=== PATIENT | male | born 1960 | race Caucasian/White ===

== ENCOUNTER → 2017-04-16 | Outpatient (CLI) | payer BC ==
[2017-04-16 07:17] LABS: ALT 38 U/L (21-72); AST 26 U/L (17-59); Alkaline Phosphatase 104 U/L (38-126); Anion Gap 10 mmol/L; Blood Urea Nitrogen 17 mg/dL (9-20); Calcium 9.5 mg/dL (8.4-10.2); Carbon Dioxide 26 mmol/L (22-30); Chloride 100 mmol/L (98-107); Cholesterol 183 mg/dL (<200); Glucose 300 mg/dL (74-99); HDL Cholesterol 48 mg/dL (40-60); Non-African American GFR(MDRD) >60 (>60 ml/min/1.73 sqM); Potassium 4.2 mmol/L (3.5-5.1); Sodium 136 mmol/L (137-145); Total Bilirubin 0.5 mg/dL (0.2-1.3); Total Protein 7.1 g/dL (6.3-8.2)
[2017-04-16 08:29] LABS: CH 30.9; CHCM 35.1; HCT 46.2 % (39.0-53.0); HDW 2.54; HGB 15.7 gm/dL (13.0-17.5); MCV 88.4 fL (80.0-100.0); RBC 5.22 m/uL (4.30-5.90); RDW 14.5 % (11.5-15.5); WBC 10.8 k/uL (3.8-10.6)
== END | disposition home or self-care (01) ==
LOC: LABWHC1 06:34
PROVIDERS: ATTEND Psychiatry & Neurology Psychiatry
DX: J44.9 Chronic obstructive pulmonary disease, unspecified (principal); E03.9 Hypothyroidism, unspecified; E78.5 Hyperlipidemia, unspecified
CPT/HCPCS: 36415; 80053; 80061; 84439; 84443; 85027

== ENCOUNTER → 2017-04-25 | Outpatient (CLI) | payer BC ==
[2017-04-25 10:21] LABS: Appearance,Urine Clear (Clear); Bilirubin,Urine Negative (Negative); Glucose,Urine (UA) Trace (Negative); Ketones,Urine Negative (Negative); Leukocyte Esterase,Urine Negative (Negative); Nitrite,Urine Negative (Negative); Protein,Urine Trace (Negative); Specific Gravity,Urine 1.021 (1.001-1.035); UA Billing (MACRO vs. MICRO) CHEM
[2017-04-25 10:40] LABS: Potassium 4.6 mmol/L (3.5-5.1)
[2017-04-25 11:01] LABS: Hemoglobin A1C 8.7 % (4.2-6.1)
== END | disposition home or self-care (01) ==
LOC: LABWHC1 09:41
PROVIDERS: ATTEND Psychiatry & Neurology Psychiatry
DX: E11.9 Type 2 diabetes mellitus without complications (principal)
CPT/HCPCS: 36415; 80051; 81003; 83036

== ENCOUNTER → 2017-07-28 | Outpatient (CLI) | payer BC ==
[2017-07-28 09:09] LABS: Appearance,Urine Clear (Clear); Bilirubin,Urine Negative (Negative); Blood,Urine Negative (Negative); Color,Urine Yellow; Glucose,Urine (UA) Negative (Negative); Ketones,Urine Negative (Negative); Leukocyte Esterase,Urine Negative (Negative); Nitrite,Urine Negative (Negative); Protein,Urine Negative (Negative); Specific Gravity,Urine 1.009 (1.001-1.035)
[2017-07-28 09:45] LABS: T4, Free (Free Thyroxine) 1.1 ng/dL (0.78-2.19)
== END | disposition home or self-care (01) ==
LOC: LABWHC1 08:14
PROVIDERS: ATTEND Psychiatry & Neurology Psychiatry
DX: E11.9 Type 2 diabetes mellitus without complications (principal); E03.9 Hypothyroidism, unspecified
CPT/HCPCS: 36415; 80061; 81003; 83036; 84439; 84443

== ENCOUNTER → 2017-09-15 | Outpatient (CLI) | payer BC ==
[2017-09-15 07:48] LABS: Basophils % (A) 0 %; Eosinophils # (A) 0.3 k/uL (0-0.7); Eosinophils % (A) 3 %; HCT 48.6 % (39.0-53.0); HGB 16.3 gm/dL (13.0-17.5); Lymphocytes # (A) 1.9 k/uL (1.0-4.8); Lymphocytes % (A) 21 %; MCH 29.4 pg (25.0-35.0); MCHC 33.7 g/dL (31.0-37.0); MCV 87.4 fL (80.0-100.0); Mean Platelet Volume 6.3; Monocytes # (A) 0.6 k/uL (0-1.0); Monocytes % (A) 7 %; Neutrophils # (A) 6.4 k/uL (1.3-7.7); Neutrophils % (A) 68 %; Platelet Count 294 k/uL (150-450); RBC 5.55 m/uL (4.30-5.90); RDW 13.1 % (11.5-15.5); WBC 9.4 k/uL (3.8-10.6)
[2017-09-15 11:33] LABS: ALT 64 U/L (21-72); AST 38 U/L (17-59); Albumin 4.4 g/dL (3.5-5.0); Alkaline Phosphatase 67 U/L (38-126); Anion Gap 9 mmol/L; Blood Urea Nitrogen 23 mg/dL (9-20); Calcium 10.2 mg/dL (8.4-10.2); Carbon Dioxide 30 mmol/L (22-30); Chloride 101 mmol/L (98-107); Cholesterol 166 mg/dL (<200); Glucose 101 mg/dL (74-99); HDL Cholesterol 31 mg/dL (40-60); LDL Cholesterol,Calculated 81 mg/dL (0-99); Potassium 4.9 mmol/L (3.5-5.1); Sodium 140 mmol/L (137-145); Total Bilirubin 0.6 mg/dL (0.2-1.3); Total Protein 7.5 g/dL (6.3-8.2); Triglycerides 269 mg/dL (<150)
[2017-09-15 11:59] LABS: Prostate Specific Antigen 0.45 ng/mL (0.00-4.00)
== END | disposition home or self-care (01) ==
LOC: LABWHC1 06:44
PROVIDERS: ATTEND Family Medicine
DX: Z00.00 Encounter for general adult medical examination without abnormal findings (principal); N40.0 Benign prostatic hyperplasia without lower urinary tract symptoms; F32.9 Major depressive disorder, single episode, unspecified
CPT/HCPCS: 36415; 80053; 80061; 82306; 84153; 84443; 85025

== ENCOUNTER → 2018-04-22 | Outpatient (CLI) | payer BC ==
[2018-04-22 08:22] LABS: HCT 45.7 % (39.0-53.0); HGB 15.6 gm/dL (13.0-17.5); MCH 29.9 pg (25.0-35.0); MCHC 34.1 g/dL (31.0-37.0); MCV 87.8 fL (80.0-100.0); Mean Platelet Volume 6.3; Platelet Count 263 k/uL (150-450); RBC 5.21 m/uL (4.30-5.90); RDW 13.5 % (11.5-15.5); WBC 8.8 k/uL (3.8-10.6)
[2018-04-22 08:45] LABS: ALT 61 U/L (21-72); Cholesterol 175 mg/dL (<200); HDL Cholesterol 32 mg/dL (40-60); LDL Cholesterol,Calculated 101 mg/dL (0-99); Triglycerides 211 mg/dL (<150)
[2018-04-22 17:51] LABS: Hemoglobin A1C 5.8 % (4.0-6.0)
== END | disposition home or self-care (01) ==
LOC: LABWHC1 06:40
PROVIDERS: ATTEND Psychiatry & Neurology Psychiatry
DX: E11.9 Type 2 diabetes mellitus without complications (principal); E78.5 Hyperlipidemia, unspecified
CPT/HCPCS: 36415; 80061; 83036; 84460; 85027

== ENCOUNTER → 2018-09-01 | Outpatient (CLI) | payer OTHER, BC ==
[2018-09-01 13:35] LABS: HCT 48.1 % (39.0-53.0); HGB 16.8 gm/dL (13.0-17.5); MCH 31.3 pg (25.0-35.0); MCHC 34.8 g/dL (31.0-37.0); Mean Platelet Volume 5.7; Platelet Count 240 k/uL (150-450); RBC 5.35 m/uL (4.30-5.90); WBC 10.7 k/uL (3.8-10.6)
[2018-09-01 21:45] LABS: Hemoglobin A1C 6.3 % (4.0-6.0)
== END | disposition home or self-care (01) ==
LOC: LABWHC1 12:25
PROVIDERS: ATTEND Psychiatry & Neurology Psychiatry
DX: E11.9 Type 2 diabetes mellitus without complications (principal); E66.9 Obesity, unspecified; Z79.899 Other long term (current) drug therapy
CPT/HCPCS: 36415; 83036; 84443; 84460; 85027

== ENCOUNTER → 2018-09-04 | Outpatient (CLI) | payer OTHER, BC ==
[2018-09-04 17:40] LABS: LDL Cholesterol,Calculated 86.8 mg/dL (0.0-131.0); VLDL Calculation 56.2 mg/dL (5.00-40.00)
== END | disposition home or self-care (01) ==
LOC: LABWHC1 07:04
PROVIDERS: ATTEND Psychiatry & Neurology Psychiatry
DX: E78.5 Hyperlipidemia, unspecified (principal)
CPT/HCPCS: 36415; 80061

== ENCOUNTER → 2018-10-27 | Outpatient (CLI) | payer OTHER, BC ==
[2018-10-27 20:07] LABS: Hepatitis A Antibody IgM Non-Reactive (Non-Reactive); Hepatitis B Core IgM Non-Reactive (Non-Reactive)
== END | disposition home or self-care (01) ==
LOC: LABWHC1 12:56
PROVIDERS: ATTEND Psychiatry & Neurology Psychiatry
DX: R94.5 Abnormal results of liver function studies (principal)
CPT/HCPCS: 36415; 80074

== ENCOUNTER → 2019-02-23 | Outpatient (CLI) | payer OTHER, BC ==
[2019-02-23 07:33] LABS: Basophils # (A) 0.1 k/uL (0-0.2); Basophils % (A) 1 %; Eosinophils # (A) 0.2 k/uL (0-0.7); Eosinophils % (A) 3 %; HCT 48.6 % (39.0-53.0); HGB 16.5 gm/dL (13.0-17.5); Lymphocytes # (A) 2.1 k/uL (1.0-4.8); Lymphocytes % (A) 23 %; MCH 30.7 pg (25.0-35.0); MCV 90.5 fL (80.0-100.0); Mean Platelet Volume 6.1; Monocytes # (A) 0.6 k/uL (0-1.0); Monocytes % (A) 7 %; Neutrophils # (A) 6.1 k/uL (1.3-7.7); Neutrophils % (A) 65 %; Platelet Count 262 k/uL (150-450); RBC 5.37 m/uL (4.30-5.90); RDW 13.7 % (11.5-15.5); WBC 9.4 k/uL (3.8-10.6)
[2019-02-23 10:25] LABS: African American GFR (CKD) 95.1 (60.0-200.0); Albumin 4.6 g/dL (3.80-4.90); Albumin/Globulin Ratio 2.19 (1.60-3.17); Anion Gap 6.4 mmol/L (4.00-12.00); Calcium 9.8 mg/dL (8.7-10.3); Carbon Dioxide 29.6 mmol/L (21.6-31.8); Chol/HDL Ratio 4.33; Globulin 2.1 g/dL (1.6-3.3); LDL Cholesterol,Calculated 83.8 mg/dL (0.0-131.0); Potassium 4.9 mmol/L (3.5-5.5); Total Bilirubin 0.5 mg/dL (0.2-1.2); Total Protein 6.7 g/dL (6.2-8.2); VLDL Calculation 36.2 mg/dL (5.00-40.00)
== END | disposition home or self-care (01) ==
LOC: LABWHC1 06:53
PROVIDERS: ATTEND Family Medicine
DX: Z00.00 Encounter for general adult medical examination without abnormal findings (principal)
CPT/HCPCS: 36415; 80053; 80061; 84153; 84443; 85025

== ENCOUNTER → 2019-04-26 | Outpatient (CLI) | payer OTHER, BC | END | disposition home or self-care (01) | LOC: LABWHC1 08:39 | PROVIDERS: ATTEND Family Medicine | DX: Z00.00 Encounter for general adult medical examination without abnormal findings (principal) | CPT/HCPCS: 36415; 84153; 84443 ==

== ENCOUNTER 2019-05-12 15:44 | Emergency (ER) | payer OTHER, BC ==
[2019-05-12 15:52] VITALS: BP 131/91; PULSE 96; RESP 18; TEMP 98.2
--- NOTE | 2019-05-12 16:02 | ED ---
ENT HPI - General Chief complaint: ENT Stated complaint: foreign body lt ear Time Seen by Provider: 05/12/19 15:56 Source: patient Mode of arrival: wheelchair Limitations: no limitations - History of Present Illness Initial comments: 59-year-old male presenting for foreign body sensation in the left ear. Patient states that he attempted to clean his ears and felt he may have left a part of the ear cleaning His left ear. He states he hears something rattling in the ear. Patient states he was at his orthopedic surgeon's office today and had them look in his ear where he was told he had foreign body and presents emergency department for removal. Patient states he has ear discomfort. Patient denies any redness or swelling of the external ear. Denies fevers. Remaining review of system negative. Upon arrival patient appears well signs of acute distress. - Related Data Home Medications Medication Instructions Recorded Confirmed Aspirin EC [Ecotrin] 81 mg PO DAILY 12/22/15 07/01/16 Isosorbide Mononitrate [Isosorbide 30 mg PO DAILY 12/22/15 07/01/16 Mononitrate ER] Metoprolol Tartrate 12.5 mg PO BID 12/22/15 07/01/16 Omeprazole 20 mg PO DAILY 12/22/15 07/01/16 Albuterol Nebulized [Ventolin 2.5 mg INHALATION RT-Q4H PRN 07/01/16 07/01/16 Nebulized] Desvenlafaxine Succinate [Pristiq 25 mg PO DAILY 07/01/16 07/01/16 ER] Losartan Potassium 100 mg PO DAILY 07/01/16 07/01/16 Mometasone/Formoterol [Dulera 200 2 puff INHALATION RT-BID PRN 07/01/16 07/01/16 Mcg/5 Mcg Inhaler] Zolpidem [Ambien] 10 mg PO HS PRN 07/01/16 07/01/16 traMADol HCL [Ultram] 100 mg PO Q6H PRN 07/01/16 07/01/16 Previous Rx's Medication Instructions Recorded Ofloxacin 0.3% Otic Soln [Floxin 5 drops LEFT EAR BID 7 Days #1 05/12/19 0.3% Otic Soln] bottle Ofloxacin 0.3% Otic Soln [Floxin 5 drops LEFT EAR BID 7 Days #1 05/12/19 0.3% Otic Soln] bottle Allergies Allergy/AdvReac Type Severity Reaction Status Date / Time No Known Allergies Allergy Verified 07/01/16 09:05 Review of Systems ROS Statement: Those systems with pertinent positive or pertinent negative responses have been documented in the HPI. ROS Other: All systems not noted in ROS Statement are negative. Past Medical History Past Medical History: COPD, GERD/Reflux, Hypertension, Liver Disease, Osteoarthritis (OA), Sleep Apnea/CPAP/BIPAP Additional Past Medical History / Comment(s): SOB, Chest tightness, heart "flutter", hepatitis C- dx and tx 2013. no using CPAP History of Any Multi-Drug Resistant Organisms: None Reported Past Surgical History: Joint Replacement, Tonsillectomy Additional Past Surgical History / Comment(s): sue shoulder replacements, arthroscopy left knee, Past Anesthesia/Blood Transfusion Reactions: No Reported Reaction Past Psychological History: Anxiety, Depression, PTSD Smoking Status: Current every day smoker Past Alcohol Use History: None Reported Past Drug Use History: None Reported - Past Family History Father Family Medical History: Cancer Mother Family Medical History: Cancer General Exam - General Exam Comments Initial Comments: General: The patient is awake and alert, in no distress, and does not appear acutely ill. Eye: Pupils are equal, round and reactive to light, extra-ocular movements are intact. No nystagmus. There is normal conjunctiva bilaterally. No signs of icterus. Back foreign body visualized in the external auditory canal. Potential patient of the external ear. No tenderness with patient the mastoid. Once foreign body was removed there is redness and irritation of the external auditory canal. No tympanic membrane erythema. No bulging or effusion. Musculoskeletal: Normal ROM, no tenderness. Strength 5/5. Sensation intact. Pulses equal bilaterally 2+. Neurological: A&O x 3. CN II-XII intact grossly, There are no obvious motor or sensory deficits. Coordination appears grossly intact. Speech is normal. Skin: Skin is warm and dry and no rashes or lesions are noted. Psychiatric: Cooperative, appropriate mood & affect, normal judgment. Limitations: no limitations Course Vital Signs 05/12/19 15:49 Temperature 98.2 F Pulse Rate 96 Respiratory 18 Rate Blood Pressure 131/91 O2 Sat by Pulse 97 Oximetry Medical Decision Making - Medical Decision Making 59-year-old male presented ER for chief complaint of foreign body. Foreign body was removed using hemostats. Without complication easily. Irritation noted of the external auditory canal. Foreign body was a earbud cover from headphones. Patient be started on antibiotic drops as patient feels he lost this about 10 days ago and signs and irritation of extraocular canal. No known ALLERGIES patient is followed up with primary care provider tomorrow return parameters discussed case discussed with attending provider patient was discharged appearing well Disposition Clinical Impression: Foreign body in left ear Disposition: HOME SELF-CARE Condition: Good Instructions (If sedation given, give patient instructions): Ear Foreign Body (ED) Additional Instructions: Please use medication as discussed. Please follow-up with family doctor tomorrow as discussed. Please return to emergency room if the symptoms increase or worsen or for any other concerns. Prescriptions: Ofloxacin 0.3% Otic Soln [Floxin 0.3% Otic Soln] 5 drops LEFT EAR BID 7 Days #1 bottle Ofloxacin 0.3% Otic Soln [Floxin 0.3% Otic Soln] 5 drops LEFT EAR BID 7 Days #1 bottle Is patient prescribed a controlled substance at d/c from ED?: No Referrals: Dariel Bach MD [Primary Care Provider] - 1-2 days Time of Disposition: 16:02
== END 2019-05-12 16:11 | disposition home or self-care (01) ==
LOC: EC 15:44
DX: T16.2XXA Foreign body in left ear, initial encounter (principal); J44.9 Chronic obstructive pulmonary disease, unspecified; K21.9 Gastro-esophageal reflux disease without esophagitis; I10 Essential (primary) hypertension; M19.90 Unspecified osteoarthritis, unspecified site; F32.9 Major depressive disorder, single episode, unspecified; F41.9 Anxiety disorder, unspecified; F17.200 Nicotine dependence, unspecified, uncomplicated; Z79.51 Long term (current) use of inhaled steroids; Z79.82 Long term (current) use of aspirin; Z79.899 Other long term (current) drug therapy; Z96.611 Presence of right artificial shoulder joint; Z96.612 Presence of left artificial shoulder joint
CPT/HCPCS: 69200; 99282

== ENCOUNTER → 2019-05-17 | Outpatient (CLI) | payer OTHER, BC ==
[2019-05-17 10:07] LABS: Partial Thromboplastin Time 25.1 sec (22.0-30.0); Prothrombin Time 10.8 sec (9.0-12.0)
[2019-05-17 10:13] LABS: Appearance,Urine Clear (Clear); Bilirubin,Urine Negative (Negative); Blood,Urine Trace (Negative); Color,Urine Yellow; Glucose,Urine (UA) Negative (Negative); Ketones,Urine Negative (Negative); Leukocyte Esterase,Urine Negative (Negative); Mucus,Urine Rare /hpf; Nitrite,Urine Negative (Negative); PH, Urine 6.5 (5.0-8.0); Protein,Urine Negative (Negative); RBC,Urine 3 /hpf (0-5); Specific Gravity,Urine 1.012 (1.001-1.035)
[2019-05-17 10:16] LABS: HCT 47.2 % (39.0-53.0); HGB 16.3 gm/dL (13.0-17.5); MCHC 34.6 g/dL (31.0-37.0); MCV 89.6 fL (80.0-100.0); Mean Platelet Volume 5.5; Platelet Count 302 k/uL (150-450); RBC 5.27 m/uL (4.30-5.90); RDW 12.1 % (11.5-15.5); WBC 9.2 k/uL (3.8-10.6)
[2019-05-17 10:23] LABS: ALT 46 U/L (21-72); AST 35 U/L (17-59); African American GFR (CKD) >90 (>60 ml/min/1.73 sqM); Albumin 4.3 g/dL (3.5-5.0); Alkaline Phosphatase 72 U/L (38-126); Anion Gap 11 mmol/L; Blood Urea Nitrogen 20 mg/dL (9-20); Calcium 9.6 mg/dL (8.4-10.2); Carbon Dioxide 24 mmol/L (22-30); Chloride 101 mmol/L (98-107); Glucose 93 mg/dL (74-99); Potassium 4.5 mmol/L (3.5-5.1); Sodium 136 mmol/L (137-145); Total Bilirubin 0.6 mg/dL (0.2-1.3); Total Protein 7.6 g/dL (6.3-8.2)
== END | disposition home or self-care (01) ==
LOC: LABPAT 08:40
PROVIDERS: ATTEND Orthopaedic Surgery
DX: Z01.812 Encounter for preprocedural laboratory examination (principal)
CPT/HCPCS: 36415; 80053; 81001; 85027; 85610; 85730; 87070

== ENCOUNTER 2019-05-24 05:56 | Inpatient (IN) | payer MEDICARE, OTHER, BC ==
[~2019-05-24 05:56] MED LIST: ACETAMINOPHEN TAB 500 MG TAB PO ONE; MELOXICAM 7.5 MG TAB PO ONE; ONDANSETRON 4 MG/2 ML VIAL IVP ONE; TRANEXAMIC ACID 1,000 MG in SODIUM CHLORIDE 0.9% 100 ML IVPB ONE
[2019-05-24] MEDS ORDERED: ROPIVACAINE 246.25 MG, EPINEPHrine 0.5 MG, KETOROLAC 30 MG, cloNIDine HCL/PF 80 MCG, WA... MISCELLANE ONE ×5 (06:00)
[2019-05-24] MEDS ORDERED: METOCLOPRAMIDE 5 MG/ML 2 ML VIAL IVP PRN (06:08)
[2019-05-24] MEDS ORDERED: HYDROmorphone 0.5 MG/0.5 ML SYRINGE IVP PRN ×2 (06:08→09:53)
[2019-05-24] MEDS ORDERED: LIDOCAINE 1% 20 ML VIAL (10MG/ML) FOR IV START INTRADERMA PRN (06:08)
[2019-05-24] MEDS ORDERED: DEXAMETHASONE SOD PHOSPHATE 10 MG/ML 1 ML VIAL IV ONE (06:08)
[2019-05-24] MEDS: LACTATED RINGERS 1,000 ML IV SCH ×3 (06:44→19:43)
[2019-05-24 06:53] LABS: Glucose,Whole Blood 120 mg/dL (75-99)
[2019-05-24] MEDS ORDERED: TRANEXAMIC ACID 1,000 MG/10 ML VIAL ONE (07:35)
[2019-05-24] MEDS ORDERED: PHENYLEPHRINE-0.9% NACL SYG 1 MG/10 ML SYRINGE ONE (07:35)
[2019-05-24] MEDS ORDERED: KETAMINE 10 MG/ML 20 ML VIAL ONE (07:35)
[2019-05-24] MEDS ORDERED: PROPOFOL 10 MG/ML 20 ML VIAL IV ONE (07:35)
[2019-05-24] MEDS ORDERED: MIDAZOLAM 2 MG/2 ML VIAL ONE (07:35)
[2019-05-24] MEDS ORDERED: ePHEDrine SULFATE/0.9% NACL/PF 50 MG/5 ML SYRINGE IV ONE (07:35)
[2019-05-24] MEDS ORDERED: fentaNYL (PF) 50 MCG/ML 2 ML AMP ONE (07:35)
[2019-05-24] MEDS ORDERED: SODIUM CHLORIDE 0.9% 100 ML BAG ONE (07:35)
[2019-05-24] MEDS ORDERED: LIDOCAINE 1% INJ 10MG/ML (20 ML MDV) ONE (07:35)
[2019-05-24 08:12] LABS: Glucose,Whole Blood 103 mg/dL (75-99)
[2019-05-24] MEDS ORDERED: ceFAZolin 3,000 MG in SODIUM CHLORIDE 0.9% IRRIGATIO 3,000 ML IRRIGATION ONE (08:14)
[2019-05-24] MEDS ORDERED: LACTATED RINGERS 1,000 ML IV ONE (08:32)
[2019-05-24 09:10] LABS: Glucose,Whole Blood 101 mg/dL (75-99)
--- NOTE | 2019-05-24 09:19 | P.OP ---
Date of Procedure: 05/24/19 Procedure(s) Performed: PREOPERATIVE DIAGNOSIS: Right hip severe osteoarthritis POSTOPERATIVE DIAGNOSIS: Right hip severe osteoarthritis OPERATION: 1 Right hip total replacement arthroplasty (uncemented implantation with ceramic on polyethylene articulation). 2. Morbid obesity ANESTHESIA: Spinal ESTIMATED BLOOD LOSS: 250 ml. GALLERY INTERN: Chelsea Mac PA-C (assistance with: patient positioning, retraction, exposure, hemostasis, leg positioning, implantation, irrigation, closure, dressing) COMPLICATIONS: None apparent. COMPONENTS IMPLANTED: Kacey continuum acetabular cup with cluster holes; continuum longevity 15 elevated liner, 32 mm id; Kacey VerSys Fiber Metal stem; VerSys 32 mm femoral head with +3.5 mm neck length extension INDICATIONS: Mr. Bergman is a 59-year-old male with significant end-stage osteoarthritis involving the right hip and commensurate severe symptoms. He has a history of morbid obesity. He presents to the operating room today for total hip replacement. I have discussed the steps of the operation as well as potential risks and complications as being inclusive of, but not limited to: Leading, infection, scarring, discomfort, or vessel and/or nerve damage, need for further surgery, loosening, dislocation, wear, osteolysis, limb length inequality, fracture, blood clot, pulmonary embolism, , persistent limp, and other risks. The patient is aware these risks and wishes to proceed with surgery and has signed a consent form. PROCEDURE: After appropriate consent was obtained, the patient was taken to the operating room and placed in supine position. Spinal anesthetic was administered and after confirmation of adequate anesthesia, the patient was placed into the lateral decubitus position with the right side up. Care was taken to make sure that all pressure points were adequately padded and he was stabilized to the table with a [place] hip positioner. The right hip was prepped and draped in the usual aseptic fashion using a combination of ChloraPrep and alcohol. [place] drape was used for the case and the patient received intravenous antibiotics prior to the incision. "Time out" was called, confirming patient identity, side, procedure, availability of implants and administration of antibiotics. The incision was created directly over the greater trochanter and carried slightly posteriorly for a posterior approach to the hip. The incision was then deepened down to subcutaneous tissue and fascia kyara. Fascia kyara was split in line with the incision and split proximally along the fibers of the gluteus heidy. The underlying fibers of the muscle were teased apart using finger dissection and bleeding vessels were picked up and coagulated. Retractor was then placed posteriorly consisting of a blunt [place]. The short external rotators and capsule were exposed using good visualization of the attachment of the external rotators to the femur was established. The short external rotators and capsule were released using electrocautery from their femoral attachments. A hockey stick shaped incision was created in the capsule. Joint fluid was evacuated and the patient's hip was able to be dislocated fairly easily. The patient's femoral head was severely arthritic with eburnated bone present and a 360 degrees bruce of osteophytes. The femoral neck cut was created approximately 1 cm superior to the lesser trochanter using a reciprocating saw. The femoral head and neck fragment was removed and attention was then directed to the acetabulum. An anterior acetabular retractor was applied followed by posterior retraction of the capsule with a [place] retractor. This afforded good visualization into the acetabular cavity. Soft tissue was removed and residual cartilage within the acetabular vault was removed using a curette. Labrum was removed using a long-handled knife. Attention was then directed to reaming. The size 44 reamer was used first, followed by increasing increments until the final size reamer was used. Please see the implantation sheet for exact sizes used for the components. Once the final reamer had been utilized to expand the socket it was noted that there was a good supportive bone around the acetabular socket and no further reaming needed to be performed. The trial the same size as the last reamer used was then impacted into the acetabular vault and found to have good fit. The acetabular component, one size (2mm) greater than the trial was then called for. The cluster holes were placed posteriorly and the component was impacted in a position of approximately 40 degrees abduction and 20 degrees anteversion. This matched this patient's [place] anteversion and it was noted that the cup had excellent stability without need for additional screw fixation. Attention was then directed to the acetabular liner. The anteversion and abduction angle of the component was noted to be very good. A 15 elevated liner was used and locked into position with the elevation posterior superior. Osteophytes around the posterior and inferior aspect of the acetabulum were trimmed as necessary to prevent any impingement. Attention was then directed back to the proximal femur. Retractors were placed around the proximal femur and box osteotome was used followed by canal finder and trochanteric reamer. Cylindrical reaming was performed. Progressive broaching was then performed starting with a #10 broach and progressing final size, in a position of 15 degrees anteversion. [place] anteversion was within 5 degrees of stem position. The final size broach had excellent fit and fill of the patient's metaphysis and diaphysis. Trial reduction was then performed starting with size 32 mm femoral head and various neck combination of stability, limb length equality, and soft tissue tension. Trial components were then removed. The canal was lavaged and the final size femoral stem component was impacted into position. The implant fit very well and had excellent stability. The femoral head was then impacted onto the [place] taper. Blood and debris were removed from the acetabular component and the hip was then reduced and checked for stability, limb length and soft tissue tension. These parameters found to be satisfactory, the wound was then thoroughly irrigated with normal saline. Final hemostasis was obtained using electrocautery and IV tranexamic acid, 1 g given at the time of prepping and draping, and another 1 g given at the time of closure. Local anesthetic solution consisting of ropivacaine with epinephrine, clonidine, and ketorolac was also used throughout the case targeting the capsule, fascia, and skin. Closure of the capsule was performed meticulously using #3 Vicryl suture. Four iqhwib-so-zewdf sutures were placed in the posterior capsule along with repair of the external rotators. The fascia kyara was then repaired using combination of #3 Vicryl suture in interrupted fashion and [place] and running fashion. 2-0 Vicryl suture was used for the subcutaneous tissues and 3-0 [place] for the skin. Dermabond or Steri-Strips were then applied. The patient tolerated the procedure well. There were no complications and the wound bed was dry and there was no need for drain placement. Sterile dressing was then applied and the patient was carefully removed from the operating room table, placed on the stretcher and was taken to the recovery room in stable condition. Sponge and needle counts were correct.
[2019-05-24] MEDS ORDERED: MAGNESIUM HYDROXIDE 2,400 MG/10 ML CUP PO PRN (09:53)
[2019-05-24] MEDS ORDERED: HYDROmorphone 1 MG/ML 1 ML SYRINGE IVP PRN (09:53)
[2019-05-24] MEDS ORDERED: NALOXONE 0.4 MG/ML 1 ML VIAL IV PRN (09:53)
[2019-05-24] MEDS ORDERED: HYDROcodone/APAP 7.5-325MG 1 EACH TAB PO PRN (09:53)
[2019-05-24 10:01] LABS: Glucose,Whole Blood 123 mg/dL (75-99)
[2019-05-24 12:04] LABS: Glucose,Whole Blood 146 mg/dL (75-99)
--- NOTE | 2019-05-24 12:06 | XR ---
EXAMINATION TYPE: XR Hip Limited RT DATE OF EXAM: 05/24/2019 CLINICAL HISTORY: Right hip pain and osteoarthritis. TECHNIQUE: Single AP portable view of right hip is obtained immediately postoperatively. COMPARISON: None. FINDINGS: Metallic hardware from right hip arthroplasty is seen and appears satisfactory in alignment and position. There is evidence of recent surgery with subcutaneous gas noted laterally. IMPRESSION: Metallic hardware from right hip arthroplasty is satisfactory in position.
[2019-05-24] MEDS: HYDROmorphone 0.5 MG/0.5 ML SYRINGE IVP PRN ×2 (14:06→17:46)
[2019-05-24] MEDS: HYDROcodone/APAP 7.5-325MG 1 EACH TAB PO PRN ×2 (14:07→19:58)
[2019-05-24 17:37] LABS: Glucose,Whole Blood 197 mg/dL (75-99)
[2019-05-24] MEDS: INSULIN ASPART (NovoLOG) 100 UNIT/ML VIAL SQ SCH ×2 (17:42→20:51)
[2019-05-24 18:15] VITALS: BMI 38.7
[2019-05-24] MEDS: ASPIRIN 325 MG TAB PO SCH (19:57)
[2019-05-24] MEDS: busPIRone HCl 10 MG TAB PO SCH (19:57)
[2019-05-24] MEDS ORDERED: traZODone HCL 100 MG TAB PO SCH (21:00)
[2019-05-24] MEDS ORDERED: SENNOSIDES-DOCUSATE SODIUM 1 EACH TAB PO SCH (21:00)
[2019-05-24 21:02] LABS: Glucose,Whole Blood 165 mg/dL (75-99)
--- NOTE | 2019-05-24 23:15 | P.CONS ---
History of Present Illness - Reason for Consult Consult date: 05/24/19 Medical management - Chief Complaint Elective right total hip arthroplasty - History of Present Illness Patient is a 59-year-old male with a known history of hypertension, diabetes type 2 [id number], COPD with previous history of smoking, osteoarthritis and obstructive sleep apnea and hepatitis C status post treatment in 2013 and anxiety/depression/PTSD was admitted to hospital for elective right total hip arthroplasty. Patient had surgery done today. Currently complaining of discomfort and pain in the right hip area. Fairly controlled with medications. Denied any complaints of headache or dizziness or lightheadedness. No chest pain or worsening shortness of breath. No complaints of nausea vomiting or abdominal pain or diarrhea. Review of Systems Constitutional: Patient denies any fever or chills . No generalized weakness or weight loss. Abdomen: Patient denied nausea vomiting and diarrhea and abdominal pain. Cardiovascular: Patient denies any chest pain or short of breath no palpitations. Respiratory: patient denied any cough is from production. No shortness of breath Neurologic: Patient denied any numbness or tingling headache. Musculoskeletal: Patient denies any complaints of joint swelling or deformity. Right hip pain Skin: Negative Psychiatric: Negative Endocrine: No heat or cold intolerance. No recent weight gain. Genitourinary: No dysuria or hematuria. All other 14 point ROS negative except the above Past Medical History Past Medical History: COPD, Diabetes Mellitus, GERD/Reflux, Hypertension, Liver Disease, Osteoarthritis (OA), Sleep Apnea/CPAP/BIPAP Additional Past Medical History / Comment(s): current tx for lt ear infection,hx SOB, Chest tightness x1, heart "flutter", hepatitis C- dx and tx 2013. using bipap History of Any Multi-Drug Resistant Organisms: None Reported Past Surgical History: Joint Replacement, Tonsillectomy Additional Past Surgical History / Comment(s): arthroscopy left knee,rt rot cuff repair x2,left shoulder reversed shoulder replacement, Past Anesthesia/Blood Transfusion Reactions: No Reported Reaction Additional Past Anesthesia/Blood Transfusion Reaction / Comm: no hx blood transfusion Past Psychological History: Anxiety, Depression, PTSD Smoking Status: Former smoker Past Alcohol Use History: None Reported Additional Past Alcohol Use History / Comment(s): quit smoking 1994, smoked 23 yrs- 1PPD Past Drug Use History: None Reported - Past Family History Father Family Medical History: Cancer Mother Family Medical History: Cancer Medications and Allergies Home Medications Medication Instructions Recorded Confirmed Type Aspirin EC [Ecotrin] 81 mg PO DAILY 12/22/15 05/18/19 History Omeprazole 20 mg PO QAM 12/22/15 05/18/19 History Desvenlafaxine Succinate [Pristiq 50 mg PO QAM 07/01/16 05/18/19 History ER] Losartan Potassium 100 mg PO QAM 07/01/16 05/18/19 History Acetaminophen-Codeine 300-30mg 1 tab PO Q6H PRN 05/18/19 05/24/19 History [Tylenol w/codeine #3] Cephalexin [Keflex] 500 mg PO Q6HR 05/18/19 05/24/19 History Metoprolol Succinate (ER) [Toprol 25 mg PO QAM 05/18/19 05/18/19 History Xl] Umeclidinium [place] [Incruse 1 puff INHALATION QAM 05/18/19 05/24/19 History Ellipta] busPIRone HCL 30 mg PO BID 05/18/19 05/18/19 History metFORMIN HCL 1,000 mg PO BID 05/18/19 05/24/19 History traZODone HCL 100 mg PO HS 05/18/19 05/24/19 History Allergies Allergy/AdvReac Type Severity Reaction Status Date / Time No Known Allergies Allergy Verified 05/18/19 13:44 Physical Exam Vitals: Vital Signs Temp Pulse Pulse Resp BP Pulse Ox 05/24/19 19:25 98.2 F 80 14 118/68 94 L 05/24/19 12:45 89 135/77 05/24/19 12:30 88 126/77 05/24/19 12:15 85 111/71 05/24/19 12:00 90 143/73 05/24/19 11:45 86 110/73 05/24/19 11:30 78 122/78 05/24/19 11:15 76 121/75 05/24/19 11:00 81 125/76 05/24/19 10:45 98.2 F 75 12 102/62 94 L 05/24/19 10:30 70 18 107/57 98 05/24/19 10:15 73 18 114/62 98 05/24/19 10:00 87 18 119/61 98 05/24/19 09:50 96.8 F L 86 15 118/63 94 L 05/24/19 06:25 97.5 F L 81 18 127/79 95 Intake and Output 05/24/19 05/24/19 05/25/19 14:59 22:59 06:59 Intake Total 1251 Output Total 600 Balance 651 Intake: IV 1251 Output: Urine 350 Estimated Blood Loss 250 Other: Voiding Method Toilet # Voids 1 PHYSICAL EXAMINATION: Patient is lying in the bed comfortably, no acute distress, awake alert and oriented.. HEENT: Normocephalic. Neck is supple. Pupils reactive. Nostrils clear. Oral cavity is moist. Ears reveal no drainage. Neck reveals no JVD, carotid bruits, or thyromegaly. CHEST EXAMINATION: Trachea is central. Symmetrical expansion. Lung se[place]our clear to auscultation and percussion. CARDIAC: Normal S1, S2 with no gallops. No murmurs ABDOMEN: Soft. Bowel sounds normal. No organomegaly. No abdominal bruits. Extremities: reveal no edema. No clubbing or cyanosis Neurologically awake, alert, oriented x3 with well-coordinated movements. No focal deficits noted Skin: No rash or skin lesions. Psychiatric: Coperative. Nonsuicidal Musculoskeletal: No joint swelling or deformity. rt Hip surgical site is clean. Normal range of motion. Results Labs: Abnormal Lab Results - Last 24 Hours (Table) 05/24/19 05/24/19 05/24/19 Range/Units 06:42 08:11 09:07 POC Glucose (mg/dL) 120 H 103 H 101 H (75-99) mg/dL 05/24/19 05/24/19 05/24/19 Range/Units 10:00 11:52 17:17 POC Glucose (mg/dL) 123 H 146 H 197 H (75-99) mg/dL 05/24/19 Range/Units 20:49 POC Glucose (mg/dL) 165 H (75-99) mg/dL Assessment and Plan Assessment: Right total hip arthroplasty postoperative day 0 Osteoarthritis Diabetes type 2 [id number] COPD Hypertension. Currently blood pressure is low Previous history of smoking Obstructive sleep apnea on CPAP at home History of heart flutter Hepatitis C status post treatment Anxiety/depression and PTSD Plan: Patient will be continued on pain management, bowel regimen, DVT prophylaxis as per primary team. Encourage ambulation and incentive spirometry. We'll hold blood pressure medications currently and will be started back once the blood pressure improves. Continue CPAP at night Insulin sliding scale for better blood sugar control. Continue psychiatric medications. Will follow closely and further recommendations based on the clinical course. Next and Thank you for your consult. Time with Patient: Greater than 30
[2019-05-25] MEDS: HYDROmorphone 0.5 MG/0.5 ML SYRINGE IVP PRN (00:53)
[2019-05-25] MEDS: HYDROcodone/APAP 7.5-325MG 1 EACH TAB PO PRN ×2 (02:54→08:16)
[2019-05-25] MEDS: LACTATED RINGERS 1,000 ML IV SCH ×2 (05:06→05:16)
[2019-05-25 06:54] LABS: Glucose,Whole Blood 189 mg/dL (75-99)
[2019-05-25 07:03] LABS: Basophils # (A) 0.1 k/uL (0-0.2); Basophils % (A) 0 %; Eosinophils # (A) 0.1 k/uL (0-0.7); Eosinophils % (A) 0 %; HCT 40.6 % (39.0-53.0); HGB 13.9 gm/dL (13.0-17.5); Lymphocytes # (A) 1.4 k/uL (1.0-4.8); Lymphocytes % (A) 10 %; MCH 30.8 pg (25.0-35.0); MCHC 34.3 g/dL (31.0-37.0); MCV 89.8 fL (80.0-100.0); Mean Platelet Volume 5.2; Monocytes % (A) 8 %; Neutrophils # (A) 10.7 k/uL (1.3-7.7); Neutrophils % (A) 80 %; Platelet Count 222 k/uL (150-450); RBC 4.52 m/uL (4.30-5.90); RDW 11.9 % (11.5-15.5); WBC 13.4 k/uL (3.8-10.6)
[2019-05-25] MEDS ORDERED: PANTOPRAZOLE 40 MG TABLET PO SCH (07:30)
[2019-05-25 07:56] VITALS: BP 109/67; PULSE 77; RESP 12; TEMP 97.9
[2019-05-25] MEDS: busPIRone HCl 10 MG TAB PO SCH (08:14)
[2019-05-25] MEDS: INSULIN ASPART (NovoLOG) 100 UNIT/ML VIAL SQ SCH (08:17)
[2019-05-25] MEDS: ASPIRIN 325 MG TAB PO SCH (08:23)
[2019-05-25] MEDS ORDERED: MELOXICAM 7.5 MG TAB PO SCH (09:00)
[2019-05-25] MEDS ORDERED: LOSARTAN 50 MG TAB PO SCH (09:00)
[2019-05-25] MEDS ORDERED: METOPROLOL SUCCINATE (ER) 25 MG TAB.ER.24H PO SCH (09:00)
[2019-05-25] MEDS ORDERED: ASPIRIN 81 MG PO SCH (09:00)
--- NOTE | 2019-05-25 09:18 | P.CONS ---
History of Present Illness - Reason for Consult Consult date: 05/25/19 Prophylactic radiation Requesting physician: Charles Ospina - Chief Complaint I had hip surgery - History of Present Illness Mr. Bergman is a 59-year-old male with significant end-stage osteoarthritis involving the right hip and commensurate severe symptoms. Patient had Right hip total replacement arthroplasty done yesterday. The patient's femoral head was severely arthritic with eburnated bone present and a 360 degrees bruce of osteophytes. Currently complaining of discomfort and pain in the right hip area although significantly better than prior to surgery. Fairly controlled with medications. Denied any complaints of headache or dizziness or lightheadedness. No chest pain or worsening shortness of breath. No complaints of nausea vomiting or abdominal pain or diarrhea. Past Medical History Past Medical History: COPD, Diabetes Mellitus, GERD/Reflux, Hypertension, Liver Disease, Osteoarthritis (OA), Sleep Apnea/CPAP/BIPAP Additional Past Medical History / Comment(s): current tx for lt ear infection,hx SOB, Chest tightness x1, heart "flutter", hepatitis C- dx and tx 2013. using bipap History of Any Multi-Drug Resistant Organisms: None Reported Past Surgical History: Joint Replacement, Tonsillectomy Additional Past Surgical History / Comment(s): arthroscopy left knee,rt rot cuff repair x2,left shoulder reversed shoulder replacement, Past Anesthesia/Blood Transfusion Reactions: No Reported Reaction Additional Past Anesthesia/Blood Transfusion Reaction / Comm: no hx blood transfusion Past Psychological History: Anxiety, Depression, PTSD Smoking Status: Former smoker Past Alcohol Use History: None Reported Additional Past Alcohol Use History / Comment(s): quit smoking 1994, smoked 23 yrs- 1PPD Past Drug Use History: None Reported - Past Family History Father Family Medical History: Cancer Mother Family Medical History: Cancer Medications and Allergies Home Medications Medication Instructions Recorded Confirmed Type Aspirin EC [Ecotrin] 81 mg PO DAILY 12/22/15 05/18/19 History Omeprazole 20 mg PO QAM 12/22/15 05/18/19 History Desvenlafaxine Succinate [Pristiq 50 mg PO QAM 07/01/16 05/18/19 History ER] Losartan Potassium 100 mg PO QAM 07/01/16 05/18/19 History Acetaminophen-Codeine 300-30mg 1 tab PO Q6H PRN 05/18/19 05/24/19 History [Tylenol w/codeine #3] Cephalexin [Keflex] 500 mg PO Q6HR 05/18/19 05/24/19 History Metoprolol Succinate (ER) [Toprol 25 mg PO QAM 05/18/19 05/18/19 History Xl] Umeclidinium [place] [Incruse 1 puff INHALATION QAM 05/18/19 05/24/19 History Ellipta] busPIRone HCL 30 mg PO BID 05/18/19 05/18/19 History metFORMIN HCL 1,000 mg PO BID 05/18/19 05/24/19 History traZODone HCL 100 mg PO HS 05/18/19 05/24/19 History Allergies Allergy/AdvReac Type Severity Reaction Status Date / Time No Known Allergies Allergy Verified 05/18/19 13:44 Physical Exam Vitals: Vital Signs Temp Pulse Pulse Resp BP Pulse Ox 05/25/19 07:00 97.9 F 77 12 109/67 93 L 05/25/19 00:45 98.0 F 78 16 103/63 93 L 05/24/19 19:25 98.2 F 80 14 118/68 94 L 05/24/19 12:45 89 135/77 05/24/19 12:30 88 126/77 05/24/19 12:15 85 111/71 05/24/19 12:00 90 143/73 05/24/19 11:45 86 110/73 05/24/19 11:30 78 122/78 05/24/19 11:15 76 121/75 05/24/19 11:00 81 125/76 05/24/19 10:45 98.2 F 75 12 102/62 94 L 05/24/19 10:30 70 18 107/57 98 05/24/19 10:15 73 18 114/62 98 05/24/19 10:00 87 18 119/61 98 05/24/19 09:50 96.8 F L 86 15 118/63 94 L Intake and Output 05/24/19 05/25/19 05/25/19 22:59 06:59 14:59 Intake Total 20 Balance 20 Intake: Oral 20 Other: Voiding Method Toilet # Voids 1 - Constitutional General appearance: obese - EENT Eyes: EOMI - Neck Neck: normal ROM - Respiratory Respiratory: bilateral: CTA - Cardiovascular Rhythm: regular - Neurologic Neurologic: CNII-XII intact - Musculoskeletal Musculoskeletal: right sided weakness - Psychiatric Psychiatric: A&O x's 3 Results CBC & Chem 7: 05/25/19 06:17 Labs: Abnormal Lab Results - Last 24 Hours (Table) 05/24/19 05/24/19 05/24/19 Range/Units 10:00 11:52 17:17 WBC (3.8-10.6) k/uL Neutrophils # (1.3-7.7) k/uL POC Glucose (mg/dL) 123 H 146 H 197 H (75-99) mg/dL 05/24/19 05/25/19 05/25/19 Range/Units 20:49 06:17 06:42 WBC 13.4 H (3.8-10.6) k/uL Neutrophils # 10.7 H (1.3-7.7) k/uL POC Glucose (mg/dL) 165 H 189 H (75-99) mg/dL Assessment and Plan Assessment: Sushant Bergman is a 59 year old s/p right toal hip. Formation of heterotopic bone following total hip replacement may partially or completely ankylose the joint space, causing pain and/or limiting the range of motion.We therefore discussed a single fraction of prophylactic radiation. A discussion of the risks and side effects of treatment were had and consent signed. Plan: We will have Sushant undergo CT simulation this morning. We will plan for a single fraction of radiation either this afternoon or have him come as an outpt tomorrow if he is anticipating discharge. Austin Franklin M.D. [phone]
--- NOTE | 2019-05-25 10:34 | P.PN ---
Progress Note - Text Progress Note Date: 05/25/19 This is a 59-year-old male who is status post total right hip arthroplasty. He is currently down in radiation oncology for a computed tomography scan to provide planning for a one-time radiation dose for heterotopic ossification prophylaxis. The patient is anticipating possible discharge to home today and return tomorrow for the radiation treatment as an outpatient. I will be in touch with the nurses see how he is doing this afternoon. If he is doing well he potentially could go home today. Vital signs and labs are stable.
== END 2019-05-25 12:06 | disposition home health service (06) | DRG 470 ==
LOC: 2ORMAIN 05:56 → 4SSUR 09:47
PROVIDERS: ADMIT Orthopaedic Surgery; ATTEND Orthopaedic Surgery
PROC: 0SR904A Replacement of Right Hip Joint with Ceramic on Polyethylene Synthetic Substitute, Uncemented, Open Approach (ICD-10-PCS; principal; 2019-05-24 07:30)
DX: M16.11 Unilateral primary osteoarthritis, right hip (principal); I10 Essential (primary) hypertension; E11.9 Type 2 diabetes mellitus without complications; J44.9 Chronic obstructive pulmonary disease, unspecified; G47.33 Obstructive sleep apnea (adult) (pediatric); E66.01 Morbid (severe) obesity due to excess calories; R53.1 Weakness; F32.9 Major depressive disorder, single episode, unspecified; F43.10 Post-traumatic stress disorder, unspecified; F17.200 Nicotine dependence, unspecified, uncomplicated; E78.5 Hyperlipidemia, unspecified; F41.9 Anxiety disorder, unspecified; K21.9 Gastro-esophageal reflux disease without esophagitis; Z96.612 Presence of left artificial shoulder joint; Z86.19 Personal history of other infectious and parasitic diseases; Z99.89 Dependence on other enabling machines and devices; Z90.89 Acquired absence of other organs; Z80.9 Family history of malignant neoplasm, unspecified; Z79.82 Long term (current) use of aspirin; Z79.84 Long term (current) use of oral hypoglycemic drugs; Z68.38 Body mass index [BMI] 38.0-38.9, adult; Z97.3 Presence of spectacles and contact lenses; Z86.79 Personal history of other diseases of the circulatory system
CPT/HCPCS: 73501; 85025; 86850; 86900; 86901; 88300

== ENCOUNTER → 2019-09-15 | Outpatient (CLI) | payer OTHER, BC, MEDICARE ==
[2019-09-15 08:00] LABS: HCT 44.2 % (39.0-53.0); HGB 15.2 gm/dL (13.0-17.5); MCH 30.2 pg (25.0-35.0); MCHC 34.4 g/dL (31.0-37.0); MCV 87.7 fL (80.0-100.0); Mean Platelet Volume 6.6; Platelet Count 221 k/uL (150-450); RBC 5.04 m/uL (4.30-5.90); WBC 7.7 k/uL (3.8-10.6)
[2019-09-15 10:07] LABS: Chol/HDL Ratio 4.41; LDL Cholesterol,Calculated 72.2 mg/dL (0.0-131.0); VLDL Calculation 43.8 mg/dL (5.00-40.00)
[2019-09-15 10:16] LABS: T4, Free (Free Thyroxine) 1.3 ng/dL (0.80-1.80)
[2019-09-15 13:03] LABS: Hemoglobin A1C 6.9 % (4.0-6.0)
== END | disposition home or self-care (01) ==
LOC: LABWHC1 07:28
PROVIDERS: ATTEND Psychiatry & Neurology Psychiatry
DX: F31.60 Bipolar disorder, current episode mixed, unspecified (principal); I10 Essential (primary) hypertension; Z79.899 Other long term (current) drug therapy
CPT/HCPCS: 36415; 80061; 83036; 84439; 84443; 84460; 85027

== ENCOUNTER → 2020-01-25 | Outpatient (CLI) | payer MEDICARE, OTHER, BC ==
[2020-01-25 08:43] LABS: HCT 48.9 % (39.0-53.0); HGB 16.8 gm/dL (13.0-17.5); MCH 30.2 pg (25.0-35.0); MCHC 34.3 g/dL (31.0-37.0); MCV 88.2 fL (80.0-100.0); Mean Platelet Volume 6.5; Platelet Count 252 k/uL (150-450); RBC 5.55 m/uL (4.30-5.90); RDW 13.2 % (11.5-15.5); WBC 10.1 k/uL (3.8-10.6)
[2020-01-25 17:47] LABS: Albumin 4.5 g/dL (3.80-4.90); Albumin/Globulin Ratio 1.73 (1.60-3.17); Bilirubin, Conjugated 0.3 mg/dL (0.20-0.40); Bilirubin,Unconjugated 0.6 mg/dL; Chol/HDL Ratio 5.36; Globulin 2.6 g/dL (1.6-3.3); LDL Cholesterol,Calculated 101.8 mg/dL (0.0-131.0); Total Bilirubin 0.9 mg/dL (0.3-1.2); Total Protein 7.1 g/dL (6.2-8.2); VLDL Calculation 42.2 mg/dL (5.00-40.00)
[2020-01-25 17:55] LABS: T4, Free (Free Thyroxine) 1.2 ng/dL (0.80-1.80)
== END | disposition home or self-care (01) ==
LOC: LABWHC1 07:42
PROVIDERS: ATTEND Psychiatry & Neurology Psychiatry
DX: E11.9 Type 2 diabetes mellitus without complications (principal); E03.9 Hypothyroidism, unspecified; E78.5 Hyperlipidemia, unspecified
CPT/HCPCS: 36415; 80061; 80076; 83036; 84439; 84443; 85027

== ENCOUNTER → 2020-12-18 | Outpatient (CLI) | payer MEDICARE, OTHER ==
[2020-12-18 15:56] LABS: HCT 51.1 % (39.6-50.0); HGB 17.3 g/dL (13.0-17.0); MCH 30.5 pg (27.0-32.0); MCHC 33.9 g/dL (32.0-37.0); MCV 90.1 fL (80.0-97.0); Mean Platelet Volume 8.7 fL (9.5-12.2); Platelet Count 265 X 10*3/uL (140-440); RBC 5.67 X 10*6/uL (4.40-5.60); RDW 13.1 % (11.5-14.5); WBC 9.51 X 10*3/uL (4.50-10.00)
[2020-12-18 18:50] LABS: African American GFR (CKD) 83.5 (60.0-200.0); Albumin 4.7 g/dL (3.80-4.90); Albumin/Globulin Ratio 1.74 (1.60-3.17); Anion Gap 8.5 mmol/L (4.00-12.00); BUN/Creat Ratio 15.45 Ratio (12.00-20.00); Calcium 9.5 mg/dL (8.7-10.3); Carbon Dioxide 26.5 mmol/L (21.6-31.8); Chol/HDL Ratio 6.07; Globulin 2.7 g/dL (1.6-3.3); Non-African American GFR(CKD) 72.1 (60.0-200.0); Potassium 4.4 mmol/L (3.5-5.5); Total Bilirubin 0.6 mg/dL (0.3-1.2); Total Protein 7.4 g/dL (6.2-8.2)
[2020-12-18 18:59] LABS: T4, Free (Free Thyroxine) 1.1 ng/dL (0.80-1.80)
== END | disposition home or self-care (01) ==
LOC: LABWHC1 08:12
PROVIDERS: ATTEND Psychiatry & Neurology Psychiatry
DX: E11.9 Type 2 diabetes mellitus without complications (principal); E78.5 Hyperlipidemia, unspecified
CPT/HCPCS: 36415; 80053; 80061; 83036; 84439; 84443; 85027

== ENCOUNTER 2021-03-05 20:07 | Observation (INO) | payer MEDICARE, OTHER ==
[2021-03-05 21:00] VITALS: TEMP 97.6
[2021-03-05] MEDS ORDERED: IPRATROPIUM-ALBUTEROL 3 ML NEB INHALATION STA (21:32)
[2021-03-05] MEDS ORDERED: SODIUM CHLORIDE 0.9% 1,000 ML IV STA (21:32)
[2021-03-05] MEDS ORDERED: methylPREDNISolone SOD SUCCI 125 MG/2 ML VIAL IV STA (21:32)
[2021-03-05] MEDS ORDERED: MORPHINE SULFATE 4 MG/ML SYRINGE IV STA (21:32)
--- NOTE | 2021-03-05 22:07 | ED ---
Weakness HPI - General Chief complaint: Weakness Stated complaint: SOB, cough Time Seen by Provider: 03/05/21 21:24 Source: patient, RN notes reviewed, old records reviewed Mode of arrival: wheelchair Limitations: no limitations - History of Present Illness Initial comments: This is a 61-year-old male to the emergency department today for evaluation of multiple complaints chest pain shortness of breath weakness fevers no shortness of breath. Exertional chest pain. Sensation states his work of breathing sometimes isn't confused. Patient is without fever, travel show sick contacts. MD Complaint: generalized weakness -: days(s) Location: generalized Severity: moderate Severity scale (1-10): 5 Quality: tingling Consistency: constant Improves with: none Worsens with: none Context: history of similar Associated Symptoms: chest pain, nausea/vomiting, shortness of breath - Related Data Home Medications Medication Instructions Recorded Confirmed Omeprazole 20 mg PO DAILY 12/22/15 03/05/21 Losartan Potassium 100 mg PO DAILY 07/01/16 03/05/21 Metoprolol Succinate (ER) [Toprol 25 mg PO DAILY 05/18/19 03/05/21 XL] Umeclidinium [place] [Incruse 1 puff INHALATION RT-DAILY 05/18/19 03/05/21 Ellipta] busPIRone HCL 30 mg PO BID 05/18/19 03/05/21 metFORMIN HCL [Glucophage] 1,000 mg PO BID 05/18/19 03/05/21 traZODone HCL 100 mg PO HS 05/18/19 03/05/21 Albuterol Nebulized [Ventolin 2.5 mg INHALATION RT-TID PRN 03/05/21 03/05/21 Nebulized] Albuterol Sulfate [Albuterol 1 puff PO RT-Q4H PRN 03/05/21 03/05/21 Sulfate Hfa] Aspirin EC [Ecotrin Low Dose] 81 mg PO DAILY 03/05/21 03/05/21 Desvenlafaxine [Desvenlafaxine ER] 50 - 100 mg PO DAILY 03/05/21 03/05/21 Previous Rx's Medication Instructions Recorded Albuterol Nebulized [Ventolin 2.5 mg INHALATION Q4H PRN #25 nebu 03/06/21 Nebulized] Albuterol Sulfate [Proair Hfa] 1 - 2 puff INHALATION Q4H PRN #1 03/06/21 inhaler predniSONE 50 mg PO DAILY #5 tab 03/06/21 Allergies Allergy/AdvReac Type Severity Reaction Status Date / Time No Known Allergies Allergy Verified 03/05/21 22:32 Review of Systems ROS Statement: Those systems with pertinent positive or pertinent negative responses have been documented in the HPI. ROS Other: All systems not noted in ROS Statement are negative. Past Medical History Past Medical History: COPD, Diabetes Mellitus, GERD/Reflux, Hypertension, Liver Disease, Osteoarthritis (OA), Sleep Apnea/CPAP/BIPAP Additional Past Medical History / Comment(s): SOB, Chest tightness, heart "flutter", hepatitis C- dx and tx 2013. no using CPAP History of Any Multi-Drug Resistant Organisms: None Reported Past Surgical History: Joint Replacement, Tonsillectomy Additional Past Surgical History / Comment(s): sue shoulder replacements, arthro scopy left knee, Past Anesthesia/Blood Transfusion Reactions: No Reported Reaction Additional Past Anesthesia/Blood Transfusion Reaction / Comment(s): no hx blood transfusion Past Psychological History: Anxiety, Depression, PTSD Smoking Status: Current every day smoker Past Alcohol Use History: None Reported Past Drug Use History: None Reported - Past Family History Father Family Medical History: Cancer Mother Family Medical History: Cancer General Exam Limitations: no limitations General appearance: alert, in no apparent distress Head exam: Present: atraumatic, normocephalic, normal inspection Eye exam: Present: normal appearance, PERRL, EOMI. Absent: scleral icterus, conjunctival injection, periorbital swelling ENT exam: Present: normal exam, mucous membranes moist Neck exam: Present: normal inspection. Absent: tenderness, meningismus, lymphadenopathy Respiratory exam: Present: normal lung sounds bilaterally. Absent: respiratory distress, wheezes, rales, rhonchi, stridor Cardiovascular Exam: Present: regular rate, normal rhythm, normal heart sounds. Absent: systolic murmur, diastolic murmur, rubs, gallop, clicks GI/Abdominal exam: Present: soft, normal bowel sounds. Absent: distended, tenderness, guarding, rebound, rigid Extremities exam: Present: normal inspection, full ROM, normal capillary refill. Absent: tenderness, pedal edema, joint swelling, calf tenderness Back exam: Present: normal inspection Neurological exam: Present: alert, oriented X3, CN II-XII intact Psychiatric exam: Present: normal affect, normal mood Skin exam: Present: warm, dry, intact, normal color. Absent: rash Course Vital Signs 03/05/21 03/05/21 03/05/21 20:57 22:14 22:32 Temperature 97.6 F Pulse Rate 61 80 82 Respiratory 18 Rate Blood Pressure 105/73 O2 Sat by Pulse 93 L Oximetry - Reevaluation(s) Reevaluation #1: 03/06/21 Record is reviewed Patient symptoms are improved here in the emergency department Patient informed of results and questions answered Patient is in no acute distress EKG Findings - EKG Comments: EKG Findings:: EKG shows sinus rhythm 60, MI 178 QRS 80 QTC 396 Medical Decision Making - Medical Decision Making 61 male to the emergency department with exertional shortness of breath and chest pain. Patient will be discharged, patient offered admission for chest pain and COPD and he refuses - Lab Data Result diagrams: 03/05/21 21:50 03/05/21 21:50 Lab Results 03/05/21 03/05/21 03/05/21 Range/Units 21:50 21:50 21:50 WBC 9.2 (3.8-10.6) k/uL RBC 5.42 (4.30-5.90) m/uL Hgb 17.2 (13.0-17.5) gm/dL Hct 48.9 (39.0-53.0) % MCV 90.2 (80.0-100.0) fL MCH 31.7 (25.0-35.0) pg MCHC 35.1 (31.0-37.0) g/dL RDW 14.2 (11.5-15.5) % Plt Count 270 (150-450) k/uL MPV 6.6 Neutrophils % 71 % Lymphocytes % 19 % Monocytes % 6 % Eosinophils % 2 % Basophils % 1 % Neutrophils # 6.6 (1.3-7.7) k/uL Lymphocytes # 1.7 (1.0-4.8) k/uL Monocytes # 0.6 (0-1.0) k/uL Eosinophils # 0.2 (0-0.7) k/uL Basophils # 0.1 (0-0.2) k/uL Poikilocytosis Slight PT 10.7 (9.0-12.0) sec INR 1.0 (<1.2) APTT 22.4 (22.0-30.0) sec Sodium 133 L (137-145) mmol/L Potassium 4.0 (3.5-5.1) mmol/L Chloride 102 (98-107) mmol/L Carbon Dioxide 23 (22-30) mmol/L Anion Gap 8 mmol/L BUN 15 (9-20) mg/dL Creatinine 0.78 (0.66-1.25) mg/dL Est GFR (CKD-EPI)AfAm >90 (>60 ml/min/1.73 sqM) Est GFR (CKD-EPI)NonAf >90 (>60 ml/min/1.73 sqM) Glucose 161 H (74-99) mg/dL Plasma Lactic Acid [place] (0.7-2.0) mmol/L Calcium 9.7 (8.4-10.2) mg/dL Phosphorus 3.6 (2.5-4.5) mg/dL Magnesium 1.8 (1.6-2.3) mg/dL Total Bilirubin 0.5 (0.2-1.3) mg/dL AST 32 (17-59) U/L ALT 31 (4-49) U/L Alkaline Phosphatase 73 (38-126) U/L Creatine Kinase 80 (55-170) U/L Troponin I (0.000-0.034) ng/mL NT-Pro-B Natriuret Pep pg/mL Total Protein 7.1 (6.3-8.2) g/dL Albumin 4.4 (3.5-5.0) g/dL 03/05/21 03/05/21 03/05/21 Range/Units 21:50 21:50 21:50 WBC (3.8-10.6) k/uL RBC (4.30-5.90) m/uL Hgb (13.0-17.5) gm/dL Hct (39.0-53.0) % MCV (80.0-100.0) fL MCH (25.0-35.0) pg MCHC (31.0-37.0) g/dL RDW (11.5-15.5) % Plt Count (150-450) k/uL MPV Neutrophils % % Lymphocytes % % Monocytes % % Eosinophils % % Basophils % % Neutrophils # (1.3-7.7) k/uL Lymphocytes # (1.0-4.8) k/uL Monocytes # (0-1.0) k/uL Eosinophils # (0-0.7) k/uL Basophils # (0-0.2) k/uL Poikilocytosis PT (9.0-12.0) sec INR (<1.2) APTT (22.0-30.0) sec Sodium (137-145) mmol/L Potassium (3.5-5.1) mmol/L Chloride (98-107) mmol/L Carbon Dioxide (22-30) mmol/L Anion Gap mmol/L BUN (9-20) mg/dL Creatinine (0.66-1.25) mg/dL Est GFR (CKD-EPI)AfAm (>60 ml/min/1.73 sqM) Est GFR (CKD-EPI)NonAf (>60 ml/min/1.73 sqM) Glucose (74-99) mg/dL Plasma Lactic Acid Faiz[place] 1.9 (0.7-2.0) mmol/L Calcium (8.4-10.2) mg/dL Phosphorus (2.5-4.5) mg/dL Magnesium (1.6-2.3) mg/dL Total Bilirubin (0.2-1.3) mg/dL AST (17-59) U/L ALT (4-49) U/L Alkaline Phosphatase (38-126) U/L Creatine Kinase (55-170) U/L Troponin I <0.012 (0.000-0.034) ng/mL NT-Pro-B Natriuret Pep 26 pg/mL Total Protein (6.3-8.2) g/dL Albumin (3.5-5.0) g/dL - Radiology Data Radiology results: report reviewed (Chest x-rays negative for acute disease), image reviewed Disposition Clinical Impression: Chest pain, Weakness, Exertional dyspnea, COPD exacerbation Disposition: HOME SELF-CARE Condition: Good Is patient prescribed a controlled substance at d/c from ED?: No
[2021-03-05 22:11] LABS: Basophils # (A) 0.1 k/uL (0-0.2); Basophils % (A) 1 %; Eosinophils # (A) 0.2 k/uL (0-0.7); Eosinophils % (A) 2 %; HCT 48.9 % (39.0-53.0); HGB 17.2 gm/dL (13.0-17.5); Lymphocytes # (A) 1.7 k/uL (1.0-4.8); Lymphocytes % (A) 19 %; MCH 31.7 pg (25.0-35.0); MCHC 35.1 g/dL (31.0-37.0); MCV 90.2 fL (80.0-100.0); Mean Platelet Volume 6.6; Monocytes # (A) 0.6 k/uL (0-1.0); Monocytes % (A) 6 %; Neutrophils # (A) 6.6 k/uL (1.3-7.7); Neutrophils % (A) 71 %; Platelet Count 270 k/uL (150-450); Poikilocytosis Slight; RBC 5.42 m/uL (4.30-5.90); RDW 14.2 % (11.5-15.5); WBC 9.2 k/uL (3.8-10.6)
[2021-03-05 22:21] LABS: Partial Thromboplastin Time 22.4 sec (22.0-30.0); Prothrombin Time 10.7 sec (9.0-12.0)
[2021-03-05 22:23] LABS: ALT 31 U/L (4-49); AST 32 U/L (17-59); African American GFR (CKD) >90 (>60 ml/min/1.73 sqM); Albumin 4.4 g/dL (3.5-5.0); Alkaline Phosphatase 73 U/L (38-126); Anion Gap 8 mmol/L; Blood Urea Nitrogen 15 mg/dL (9-20); Calcium 9.7 mg/dL (8.4-10.2); Carbon Dioxide 23 mmol/L (22-30); Chloride 102 mmol/L (98-107); Creatine Kinase 80 U/L (55-170); Glucose 161 mg/dL (74-99); Magnesium 1.8 mg/dL (1.6-2.3); Non-African American GFR(CKD) >90 (>60 ml/min/1.73 sqM); Phosphorus 3.6 mg/dL (2.5-4.5); Sodium 133 mmol/L (137-145); Total Bilirubin 0.5 mg/dL (0.2-1.3); Total Protein 7.1 g/dL (6.3-8.2)
--- NOTE | 2021-03-05 23:33 | XR ---
EXAMINATION TYPE: XR chest 2V DATE OF EXAM: 03/05/2021 COMPARISON: 01/25/2021 HISTORY: Short of breath TECHNIQUE: FINDINGS: Heart appears enlarged. There is no gross heart failure. There is bilateral shoulder prosth esis. There are no hilar masses. There is no pleural effusion. IMPRESSION: Cardiomegaly. No active cardiopulmonary disease. Heart appears increased compared to old exam.
[2021-03-05] MEDS ORDERED: ACETAMINOPHEN TAB 325 MG TAB PO PRN (23:38)
[2021-03-05] MEDS ORDERED: MORPHINE SULFATE 4 MG/ML SYRINGE IV PRN (23:38)
[2021-03-05] MEDS ORDERED: IPRATROPIUM-ALBUTEROL 3 ML NEB INHALATION PRN (23:38)
[2021-03-05] MEDS ORDERED: NALOXONE 0.4 MG/ML 1 ML VIAL IV PRN (23:38)
[2021-03-05] MEDS ORDERED: ONDANSETRON 4 MG/2 ML VIAL IVP PRN (23:38)
[2021-03-05] MEDS ORDERED: SODIUM CHLORIDE 0.9% 1,000 ML IV SCH (23:45)
[2021-03-06 00:28] VITALS: BP 142/67; PULSE 78; RESP 16
[2021-03-06] MEDS ORDERED: methylPREDNISolone SOD SUCCI 125 MG/2 ML VIAL IV SCH (04:00)
[2021-03-06] MEDS ORDERED: ALBUTEROL NEBULIZED 2.5 MG/3 ML INHALATION SCH (08:00)
[2021-03-06] MEDS ORDERED: PANTOPRAZOLE 40 MG/10 ML VIAL IV SCH (09:00)
== END 2021-03-06 00:27 | disposition home or self-care (01) ==
LOC: EC 20:07 → 1SOBS 23:38
PROVIDERS: ADMIT Hospitalist; ATTEND Hospitalist
DX: J44.1 Chronic obstructive pulmonary disease with (acute) exacerbation (principal); R07.89 Other chest pain; R53.1 Weakness; I11.9 Hypertensive heart disease without heart failure; E11.9 Type 2 diabetes mellitus without complications; G47.30 Sleep apnea, unspecified; K21.9 Gastro-esophageal reflux disease without esophagitis; B19.20 Unspecified viral hepatitis C without hepatic coma; M19.90 Unspecified osteoarthritis, unspecified site; F43.10 Post-traumatic stress disorder, unspecified; F32.9 Major depressive disorder, single episode, unspecified; F41.9 Anxiety disorder, unspecified; F17.200 Nicotine dependence, unspecified, uncomplicated; Z96.612 Presence of left artificial shoulder joint; Z96.611 Presence of right artificial shoulder joint; Z79.84 Long term (current) use of oral hypoglycemic drugs; Z79.82 Long term (current) use of aspirin; Z79.899 Other long term (current) drug therapy; Z86.19 Personal history of other infectious and parasitic diseases; Z80.9 Family history of malignant neoplasm, unspecified
CPT/HCPCS: 96374; 96375; 99285; 94640; 93005; 83880; 80053; 82550; 83605; 83735; 84100; 84484; 85025; 85610; 85730; 71046; J2270; J2930

== ENCOUNTER 2021-04-02 11:02 | Observation (INO) | payer MEDICARE, OTHER ==
--- NOTE | 2021-04-02 12:47 | ED ---
General Adult HPI - General Chief complaint: Shortness of Breath Stated complaint: sob Time Seen by Provider: 04/02/21 11:15 Source: patient, family, RN notes reviewed, old records reviewed Mode of arrival: wheelchair Limitations: no limitations - History of Present Illness Initial comments: This is a 61-year-old male who presents emergency Department with a past medical history significant for diabetes hypertension high cholesterol and smoking. Patient comes in today because he states he's had chest heaviness. Patient states it started about a week ago and he was asked to stay in the hospital but he decided to go home and follow-up as an outpatient. Patient states he was she would stated that time. Patient states he is scheduled for an echo one cardiac catheterization in the future. Patient states the chest pain continues he short of breath he has a dry cough no sputum production. Patient denies any recent fever chills. Patient denies any palpitations. Patient does state he is somewhat short of breath. Patient denies any diaphoretic episodes. Patient denies any abdominal pain. Patient denies any swelling to the legs or calf t enderness. - Related Data Home Medications Medication Instructions Recorded Confirmed Omeprazole 20 mg PO DAILY 12/22/15 04/02/21 Losartan Potassium 100 mg PO DAILY 07/01/16 04/02/21 Metoprolol Succinate (ER) [Toprol 25 mg PO DAILY 05/18/19 04/02/21 XL] Umeclidinium [place] [Incruse 1 puff INHALATION RT-DAILY 05/18/19 04/02/21 Ellipta] busPIRone HCL 30 mg PO BID 05/18/19 04/02/21 metFORMIN HCL [Glucophage] 1,000 mg PO BID 05/18/19 04/02/21 traZODone HCL 200 mg PO HS 05/18/19 04/02/21 Aspirin EC [Ecotrin Low Dose] 81 mg PO DAILY 03/05/21 04/02/21 Desvenlafaxine [Desvenlafaxine ER] 50 mg PO DAILY 03/05/21 04/02/21 Albuterol Nebulized [Ventolin 2.5 mg INHALATION RT-Q4H PRN 04/02/21 04/02/21 Nebulized] Allergies Allergy/AdvReac Type Severity Reaction Status Date / Time No Known Allergies Allergy Verified 04/02/21 13:34 Review of Systems ROS Statement: Those systems with pertinent positive or pertinent negative responses have been documented in the HPI. ROS Other: All systems not noted in ROS Statement are negative. Past Medical History Past Medical History: COPD, Diabetes Mellitus, GERD/Reflux, Hypertension, Liver Disease, Osteoarthritis (OA), Sleep Apnea/CPAP/BIPAP Additional Past Medical History / Comment(s): SOB, Chest tightness, heart "flutter", hepatitis C- dx and tx 2013. no using CPAP History of Any Multi-Drug Resistant Organisms: None Reported Past Surgical History: Joint Replacement, Tonsillectomy Additional Past Surgical History / Comment(s): sue shoulder replacements, arthroscopy left knee, Past Anesthesia/Blood Transfusion Reactions: No Reported Reaction Additional Past Anesthesia/Blood Transfusion Reaction / Comment(s): no hx blood transfusion Past Psychological History: Anxiety, Depression, PTSD Smoking Status: Current every day smoker Past Alcohol Use History: None Reported Past Drug Use History: None Reported - Past Family History Father Family Medical History: Cancer Mother Family Medical History: Cancer General Exam - General Exam Comments Initial Comments: GENERAL: Patient is well-developed and well-nourished. Patient is nontoxic and well- hydrated and is in mild distress distress. ENT: Neck is soft and supple. No significant lymphadenopathy is noted. Oropharynx is clear. Moist mucous membranes. Neck has full range of motion without eliciting any pain. There is no thyroid enlargement and no masses were felt. EYES: The sclera were anicteric and conjunctiva were pink and moist. Extraocular movements were intact and pupils were equal round and reactive to light. Eyelids were unremarkable. PULMONARY: Unlabored respirations. Good breath sounds bilaterally. Patient has some slight expiratory wheezing CARDIOVASCULAR: There is a regular rate and rhythm without any murmurs gallops or rubs. ABDOMEN: Soft and nontender with normal bowel sounds. SKIN: Skin is clear with no lesions or rashes and otherwise unremarkable. NEUROLOGIC: Patient is alert and oriented x3. Cranial nerves II through XII are grossly in tact. Motor and sensory are also intact. Normal speech, volume and content. Symmetrical smile. MUSCULOSKELETAL: Normal extremities with adequate strength and full range of motion. No lower extremity swelling or edema. No calf tenderness. LYMPHATICS: No significant lymphadenopathy is noted PSYCHIATRIC: Normal psychiatric evaluation. Limitations: no limitations Course Vital Signs 04/02/21 04/02/21 11:12 12:56 Temperature 97.9 F Pulse Rate 82 Respiratory 22 16 Rate Blood Pressure 144/86 O2 Sat by Pulse 95 Oximetry Medical Decision Making - Medical Decision Making EKG shows normal sinus rhythm at 81 bpm WI interval is on a 54 QRS is 70 QT interval 382 QTC is 443. Patient's EKG shows no ST segment elevation or depression. Chest x-ray shows no acute abnormality. I spoke with Dr. Caicedo agreed to admit the patient admitted the patient wrote admitting orders. - Lab Data Result diagrams: 04/02/21 12:30 04/02/21 12:45 Lab Results 04/02/21 04/02/21 04/02/21 Range/Units 12:30 12:30 12:45 WBC 9.8 (3.8-10.6) k/uL RBC 5.03 (4.30-5.90) m/uL Hgb 15.6 (13.0-17.5) gm/dL Hct 44.5 (39.0-53.0) % MCV 88.3 (80.0-100.0) fL MCH 30.9 (25.0-35.0) pg MCHC 35.0 (31.0-37.0) g/dL RDW 12.8 (11.5-15.5) % Plt Count 287 (150-450) k/uL MPV 6.8 Neutrophils % 69 % Lymphocytes % 22 % Monocytes % 5 % Eosinophils % 3 % Basophils % 1 % Neutrophils # 6.7 (1.3-7.7) k/uL Lymphocytes # 2.1 (1.0-4.8) k/uL Monocytes # 0.5 (0-1.0) k/uL Eosinophils # 0.3 (0-0.7) k/uL Basophils # 0.1 (0-0.2) k/uL PT 10.5 (9.0-12.0) sec INR 1.0 (<1.2) APTT 22.5 (22.0-30.0) sec Sodium 133 L (137-145) mmol/L Potassium 4.2 (3.5-5.1) mmol/L Chloride 100 (98-107) mmol/L Carbon Dioxide 21 L (22-30) mmol/L Anion Gap 12 mmol/L BUN 18 (9-20) mg/dL Creatinine 0.70 (0.66-1.25) mg/dL Est GFR (CKD-EPI)AfAm >90 (>60 ml/min/1.73 sqM) Est GFR (CKD-EPI)NonAf >90 (>60 ml/min/1.73 sqM) Glucose 192 H (74-99) mg/dL POC Glucose (mg/dL) (75-99) mg/dL POC Glu [employer]ing [employer] ID Calcium 9.7 (8.4-10.2) mg/dL Magnesium 1.9 (1.6-2.3) mg/dL Total Bilirubin 0.9 (0.2-1.3) mg/dL AST 38 (17-59) U/L ALT 44 (4-49) U/L Alkaline Phosphatase 76 (38-126) U/L Troponin I (0.000-0.034) ng/mL Total Protein 7.2 (6.3-8.2) g/dL Albumin 4.1 (3.5-5.0) g/dL 04/02/21 04/02/21 Range/Units 12:45 13:39 WBC (3.8-10.6) k/uL RBC (4.30-5.90) m/uL Hgb (13.0-17.5) gm/dL Hct (39.0-53.0) % MCV (80.0-100.0) fL MCH (25.0-35.0) pg MCHC (31.0-37.0) g/dL RDW (11.5-15.5) % Plt Count (150-450) k/uL MPV Neutrophils % % Lymphocytes % % Monocytes % % Eosinophils % % Basophils % % Neutrophils # (1.3-7.7) k/uL Lymphocytes # (1.0-4.8) k/uL Monocytes # (0-1.0) k/uL Eosinophils # (0-0.7) k/uL Basophils # (0-0.2) k/uL PT (9.0-12.0) sec INR (<1.2) APTT (22.0-30.0) sec Sodium (137-145) mmol/L Potassium (3.5-5.1) mmol/L Chloride (98-107) mmol/L Carbon Dioxide (22-30) mmol/L Anion Gap mmol/L BUN (9-20) mg/dL Creatinine (0.66-1.25) mg/dL Est GFR (CKD-EPI)AfAm (>60 ml/min/1.73 sqM) Est GFR (CKD-EPI)NonAf (>60 ml/min/1.73 sqM) Glucose (74-99) mg/dL POC Glucose (mg/dL) 184 H (75-99) mg/dL POC Glu Air Conditioning [employer]ic ID [place] Calcium (8.4-10.2) mg/dL Magnesium (1.6-2.3) mg/dL Total Bilirubin (0.2-1.3) mg/dL AST (17-59) U/L ALT (4-49) U/L Alkaline Phosphatase (38-126) U/L Troponin I <0.012 (0.000-0.034) ng/mL Total Protein (6.3-8.2) g/dL Albumin (3.5-5.0) g/dL Disposition Clinical Impression: Chest pain Disposition: ADMITTED IP TO THIS HOSP Referrals: Dariel Bach MD [Primary Care Provider] - 1-2 days Time of Disposition: 14:36
--- NOTE | 2021-04-02 13:28 | XR ---
EXAMINATION TYPE: XR chest 2V DATE OF EXAM: 04/02/2021 COMPARISON: 03/05/21 HISTORY: Shortness of breath TECHNIQUE: Frontal and lateral views of the chest are obtained. FINDINGS: Scattered senescent parenchymal changes noted. Hyperinflation compatible with COPD. No evidence for infiltrate. No evidence for atelectasis. Heart size is stable. Mediastinal structures are stable and grossly unremarkable. No evidence for hilar prominence. Degenerative changes dorsal spine. IMPRESSION: 1. No evidence for acute pulmonary disease.
[2021-04-02 13:30] LABS: ALT 44 U/L (4-49); AST 38 U/L (17-59); African American GFR (CKD) >90 (>60 ml/min/1.73 sqM); Albumin 4.1 g/dL (3.5-5.0); Alkaline Phosphatase 76 U/L (38-126); Anion Gap 12 mmol/L; Blood Urea Nitrogen 18 mg/dL (9-20); Calcium 9.7 mg/dL (8.4-10.2); Carbon Dioxide 21 mmol/L (22-30); Chloride 100 mmol/L (98-107); Glucose 192 mg/dL (74-99); Magnesium 1.9 mg/dL (1.6-2.3); Non-African American GFR(CKD) >90 (>60 ml/min/1.73 sqM); Potassium 4.2 mmol/L (3.5-5.1); Sodium 133 mmol/L (137-145); Total Bilirubin 0.9 mg/dL (0.2-1.3); Total Protein 7.2 g/dL (6.3-8.2)
[2021-04-02 13:30] LABS: Basophils # (A) 0.1 k/uL (0-0.2); Basophils % (A) 1 %; Eosinophils # (A) 0.3 k/uL (0-0.7); Eosinophils % (A) 3 %; HCT 44.5 % (39.0-53.0); HGB 15.6 gm/dL (13.0-17.5); Lymphocytes # (A) 2.1 k/uL (1.0-4.8); Lymphocytes % (A) 22 %; MCH 30.9 pg (25.0-35.0); MCV 88.3 fL (80.0-100.0); Mean Platelet Volume 6.8; Monocytes # (A) 0.5 k/uL (0-1.0); Monocytes % (A) 5 %; Neutrophils # (A) 6.7 k/uL (1.3-7.7); Neutrophils % (A) 69 %; Platelet Count 287 k/uL (150-450); RBC 5.03 m/uL (4.30-5.90); RDW 12.8 % (11.5-15.5); WBC 9.8 k/uL (3.8-10.6)
[2021-04-02 13:41] LABS: Glucose,Whole Blood 184 mg/dL (75-99)
[2021-04-02 13:42] LABS: Partial Thromboplastin Time 22.5 sec (22.0-30.0); Prothrombin Time 10.5 sec (9.0-12.0)
[2021-04-02] MEDS ORDERED: NITROGLYCERIN SL TABS 0.4 MG TAB SUBLINGUAL PRN (14:36)
[2021-04-02] MEDS ORDERED: ALBUTEROL NEBULIZED 2.5 MG/3 ML INHALATION PRN (16:06)
[2021-04-02] MEDS ORDERED: NALOXONE 0.4 MG/ML 1 ML VIAL IV PRN (16:08)
[2021-04-02] MEDS ORDERED: ACETAMINOPHEN TAB 325 MG TAB PO PRN (16:08)
[2021-04-02] MEDS ORDERED: ALPRAZolam 0.25 MG TAB PO PRN (16:08)
[2021-04-02] MEDS ORDERED: ONDANSETRON 4 MG/2 ML VIAL IVP PRN (16:08)
[2021-04-02] MEDS ORDERED: MELATONIN 3 MG TABLET PO PRN (16:08)
--- NOTE | 2021-04-02 17:46 | P.HPIM ---
History of Present Illness H&P Date: 04/02/21 Chief Complaint: Chest tightness History of presenting complaint: This is a pleasant 61-year-old patient of Dr. Dariel Bach. Chronic stable medical conditions include diabetes, GERD, hypertension, osteoarthritis, obstructive sleep apnea uses CPAP, depression. Patient has been noticing having heavy chest for about 3-4 weeks. He notices that it, especially with activity. No radiation. No dizziness nor lightheadedness. Sometimes associated with perspiration. Not able to walk blocks distances. He did see Dr. Gordon for the same. Was given bronchodilators and Zithromax. Some improvement. Patient is also wheezing. Patient also saw his sales program coordinator Dr. Abhinav Tolbert and is scheduled to have a 2-D echocardiogram and a cardiac catheterization. Patient denies any prior cardiac activity. He also feels congested in the chest. Feels and sees to expectorate sputum and is not able to do so. Patient's symptoms have been progressive hence decided to come to the ER. Review of systems: GEN.: None EYES: None HEENT: None NECK: None RESPIRATORY: As above CARDIOVASCULAR: As above, no edema GASTROINTESTINAL: None GENITOURINARY: None MUSCULOSKELETAL: None LYMPHATICS: None HEMATOLOGICAL: None PSYCHIATRY: None NEUROLOGICAL: None Past medical history to include: COPD, diabetes, GERD, hypertension, liver disease, osteoarthritis, obstructive sleep apnea uses CPAP, hepatitis C diagnosed and treated in 2013, anxiety depression PTSD Social history: Patient smoked for about 23 years about a pack a day stopped in 1994. . 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 Family history: Cancer Physical examination: VITAL SIGNS: 97.9, 82, 82, 144/86, 95% room air GENERAL: BMI 37.1, sitting on bed, not in distress. EYES: Pupils equal. Conjunctiva normal. HEENT: External appearance of nose and ears normal, oral cavity grossly normal. NECK: JVD not raised; masses not palpable. HEART: First and second heart sounds are normal; no edema. LUNGS: Respiratory rate normal; diminished breath sounds, mild wheezing. ABDOMEN: Soft, nontender, liver spleen not palpable, no masses palpable. GENITOURINARY: Patient been having urinary urgency and decreased flow and urine for last few weeks. PSYCH: Alert and oriented x3; mood and affect normal. NEUROLOGICAL: Cranial nerves grossly intact; no facial asymmetry, power and sensation grossly intact. LYMPHATICS: No lymph nodes palpable in the axilla and neck INVESTIGATIONS, reviewed in the clinical context: WBC 9.8 hemoglobin 15.6 platelets 287 potassium 4.2 creatinine 0.7 EKG tracing personally reviewed by me-normal sinus rhythm Chest x-ray film personally reviewed by me-borderline cardiomegaly. Lung clear Assessment and plan: -Progressive chest tightness with activity the patient should with known cardiac risk factors include ex-smoker, diabetes, hypertension. Aspirin. Toprol-XL. 2-D echocardiogram. Consult cardiology. Nothing by mouth after midnight. Possible cardiac cath -COPD in a previous smoker DuoNeb 4 times a day. Inhaled steroids. Add Mucinex and a flutter valve to help expectoration. -Obstructive sleep apnea Continue CPAP -Essential hypertension Cozaar 100 mg a day, Toprol-XL 25 mg a day -Obesity BMI 37.1 Weight loss measures and follow-up with PCP -Anxiety depression not otherwise specified BuSpar 30 mg twice a day, Pristiq ER 50 mg daily, -Likely BPH symptoms Start Flomax 0.4 mg daily at bedtime. Discussed with patient to follow-up with his PCP. Home medications resumed. Aspirin. Nitropaste. 2-D echocardiogram. DuoNeb inhaled steroids. Mucinex. Consult cardiology. Keep nothing by mouth after midnight for possible cardiac catheterization. Care was discussed with the patient. Questions answered. - Past Medical History Past Medical History: COPD, Diabetes Mellitus, GERD/Reflux, Hypertension, Liver Disease, Osteoarthritis (OA), Sleep Apnea/CPAP/BIPAP Additional Past Medical History / Comment(s): SOB, Chest tightness, heart "flutter", hepatitis C- dx and tx 2013. no using CPAP History of Any Multi-Drug Resistant Organisms: None Reported Past Surgical History: Joint Replacement, Tonsillectomy Additional Past Surgical History / Comment(s): sue shoulder replacements, arthroscopy left knee, Past Anesthesia/Blood Transfusion Reactions: No Reported Reaction Additional Past Anesthesia/Blood Transfusion Reaction / Comment(s): no hx blood transfusion Past Psychological History: Anxiety, Depression, PTSD Smoking Status: Current every day smoker Past Alcohol Use History: None Reported Past Drug Use History: None Reported - Past Family History Father Family Medical History: Cancer Mother Family Medical History: Cancer Medications and Allergies Home Medications Medication Instructions Recorded Confirmed Type Omeprazole 20 mg PO DAILY 12/22/15 04/02/21 History Losartan Potassium 100 mg PO DAILY 07/01/16 04/02/21 History Metoprolol Succinate (ER) [Toprol 25 mg PO DAILY 05/18/19 04/02/21 History XL] Umeclidinium [place] [Incruse 1 puff INHALATION RT-DAILY 05/18/19 04/02/21 History Ellipta] busPIRone HCL 30 mg PO BID 05/18/19 04/02/21 History metFORMIN HCL [Glucophage] 1,000 mg PO BID 05/18/19 04/02/21 History traZODone HCL 200 mg PO HS 05/18/19 04/02/21 History Aspirin EC [Ecotrin Low Dose] 81 mg PO DAILY 03/05/21 04/02/21 History Desvenlafaxine [Desvenlafaxine ER] 50 mg PO DAILY 03/05/21 04/02/21 History Albuterol Nebulized [Ventolin 2.5 mg INHALATION RT-Q4H PRN 04/02/21 04/02/21 Hi story Nebulized] Allergies Allergy/AdvReac Type Severity Reaction Status Date / Time No Known Allergies Allergy Verified 04/02/21 13:34 Physical Exam Vitals: Vital Signs Temp Pulse Resp BP Pulse Ox 04/02/21 15:48 71 16 143/77 97 04/02/21 12:56 16 04/02/21 11:12 97.9 F 82 22 144/86 95 Intake and Output 04/02/21 04/02/21 04/02/21 06:59 14:59 22:59 Other: Weight 113.852 kg Results CBC & Chem 7: 04/02/21 12:30 04/02/21 12:45 Labs: Abnormal Lab Results - Last 24 Hours (Table) 04/02/21 04/02/21 Range/Units 12:45 13:39 Sodium 133 L (137-145) mmol/L Carbon Dioxide 21 L (22-30) mmol/L Glucose 192 H (74-99) mg/dL POC Glucose (mg/dL) 184 H (75-99) mg/dL
[2021-04-02 18:25] LABS: Glucose,Whole Blood 162 mg/dL (75-99)
[2021-04-02] MEDS ORDERED: TAMSULOSIN 0.4 MG CAP.ER.24H PO SCH (18:30)
[2021-04-02] MEDS: ENOXAPARIN 40 MG/0.4 ML SYRINGE SQ SCH (18:43)
[2021-04-02] MEDS: INSULIN ASPART (NovoLOG) 100 UNIT/ML VIAL SQ SCH ×2 (18:45→22:03)
[2021-04-02] MEDS: guaiFENesin 600 MG TABLET.ER PO SCH ×2 (18:50→22:04)
[2021-04-02] MEDS: NITROGLYCERIN OINT 1 INCH/GM PACKET TOPICAL SCH ×3 (18:52→22:12)
[2021-04-02] MEDS: IPRATROPIUM-ALBUTEROL 3 ML NEB INHALATION SCH (19:33)
[2021-04-02] MEDS: BUDESONIDE 1 MG/2 ML NEBU INHALATION SCH (19:33)
[2021-04-02] MEDS: busPIRone HCl 10 MG TAB PO SCH (20:05)
[2021-04-02] MEDS ORDERED: traZODone HCL 100 MG TAB PO SCH (21:00)
[2021-04-02 21:53] LABS: Glucose,Whole Blood 155 mg/dL (75-99)
[2021-04-03] MEDS: NITROGLYCERIN OINT 1 INCH/GM PACKET TOPICAL SCH (02:15)
[2021-04-03] MEDS ORDERED: PANTOPRAZOLE 40 MG TABLET PO SCH (07:30)
[2021-04-03 07:57] LABS: Glucose,Whole Blood 142 mg/dL (75-99)
[2021-04-03] MEDS ORDERED: IPRATROPIUM 0.5 MG/2.5 ML NEBU INHALATION SCH (08:00)
[2021-04-03 08:07] VITALS: BP 109/69; PULSE 75; RESP 16; TEMP 97.5
[2021-04-03] MEDS: BUDESONIDE 1 MG/2 ML NEBU INHALATION SCH (08:25)
[2021-04-03] MEDS: IPRATROPIUM-ALBUTEROL 3 ML NEB INHALATION SCH ×2 (08:25→10:57)
[2021-04-03] MEDS ORDERED: CAFFEINE CITRATE 60 MG/3 ML VIAL IV PRN (08:38)
[2021-04-03] MEDS ORDERED: REGADENOSON 0.4 MG/5 ML SYRINGE IV PRN (08:38)
[2021-04-03] MEDS ORDERED: AMINOPHYLLINE 500 MG/20 ML VIAL IV PRN (08:38)
[2021-04-03] MEDS: INSULIN ASPART (NovoLOG) 100 UNIT/ML VIAL SQ SCH (08:45)
[2021-04-03] MEDS: ASPIRIN 81 MG PO SCH (08:51)
[2021-04-03] MEDS: guaiFENesin 600 MG TABLET.ER PO SCH (08:51)
[2021-04-03] MEDS: busPIRone HCl 10 MG TAB PO SCH (08:52)
[2021-04-03] MEDS ORDERED: METOPROLOL SUCCINATE (ER) 25 MG TAB.ER.24H PO SCH (09:00)
[2021-04-03] MEDS ORDERED: ASPIRIN 325 MG TAB PO SCH (09:00)
[2021-04-03] MEDS ORDERED: LOSARTAN 50 MG TAB PO SCH (09:00)
[2021-04-03] MEDS ORDERED: DESVENLAFAXINE SUCCINATE 50 MG TAB.ER.24H PO SCH (09:00)
[2021-04-03] MEDS: ENOXAPARIN 40 MG/0.4 ML SYRINGE SQ SCH (09:07)
--- NOTE | 2021-04-03 09:46 | P.CRDCN ---
History of Present Illness History of present illness: HISTORY OF PRESENTING ILLNESS This is a pleasant 61-year-old male past medical history significant for COPD, type 2 diabetes, obstructive sleep apnea, hypertension, COVID-19 infection in early 2019, chronic nicotine dependence. He follows in the office with Dr. Tolbert. We have been asked to see in consultation for chest pain. Patient is seen and examined at bedside, no acute distress. Patient states he had an episode of chest heaviness yesterday. It is nonradiating. Nonexertional. He states it is intermittent and comes and goes. He states that he's also been happening dyspnea on exertion that has been getting progressively worse. He was short of breath with activities of daily living. He also states that he did have an episode of diaphoresis at his primary care office appointment a few days ago. He denies any nausea, vomiting, abdominal pain, palpitations, lightheadedness, dizziness, syncope. He currently does not have any chest heaviness on exam. He is a current every day smoker, smokes 1-1.5PPD. Denies alcohol or illicit drug use. He denies any history of GA, stroke. He denies history of coronary artery disease. DIAGNOSTICS EKG reveals sinus rhythm, heart rate 81, T wave inversion in lead aVL. no significant STT wave abnormalities. Prior EKG in February 2021 with similar findings. Lexiscan stress test in 2016 revealed partially reversible defect in inferior wall. Cardiac catheterization in 2016 revealed normal coronary arteries Telemetry tracings indicate sinus mechanism heart rate 60 to 80s. Chest xray no acute cardiopulmonary process. Echocardiogram in 2019 revealed EF of 55%, mild mitral regurgitation and mild tricuspid regurgitation Laboratory reviewed, troponin negative 3, CBC unremarkable, sodium 133, potassium 4.2, BUN 18, serum creatinine 0.7, magnesium 1.9, COVID-19 PCR negative REVIEW OF SYSTEMS At the time of my exam: CONSTITUTIONAL: Denies fever or chills. CARDIOVASCULAR: Positive chest pain, positive shortness of breath Denies o rthopnea, PND or palpitations. RESPIRATORY: Denies cough. GASTROINTESTINAL: Denies abdominal pain, diarrhea, constipation, nausea or vomiting. MUSCULOSKELETAL: Denies myalgias. NEUROLOGIC: Denies numbness, tingling, headacbe or weakness. ENDOCRINE: Denies fatigue, weight change, polydipsia or polyurina. GENITOURINARY: Denies burning, hematuria or urgency with micturation. HEMATOLOGIC: Denies history of anemia or bleeding. PHYSICAL EXAMINATION Blood pressure 109/69, heart rate 75, afebrile, maintaining saturations on room air. CONSTITUTIONAL: No apparent distress. HEENT: Head is normocephalic. Pupils are equal, round. Sclerae anicteric. Mucous membranes of the mouth are moist. No JVD. No carotid bruit. CHEST EXAMINATION: Lungs are clear to auscultation. No chest wall tenderness is noted on palpation or with deep breathing. HEART EXAMINATION: Regular rate and rhythm. S1, S2 heard. No murmurs, gallops or rub. ABDOMEN: Soft, nontender. Positive bowel sounds. EXTREMITIES: 2+ peripheral pulses, no lower extremity edema and no calf tenderness. SKIN: warm, dry NEUROLOGIC EXAMINATION: Patient is awake, alert and oriented x3. ASSESSMENT Chest pain, atypical, acute coronary syndrome has been ruled out. Dyspnea on exertion. COPD Type 2 diabetes Obstructive sleep apnea Hypertension Chronic nicotine dependence PLAN An acute coronary event has been ruled out with no EKG evidence of ischemia and negative cardiac enzymes. Obtain 2D echocardiogram and doppler study to assess cardiac structure and function. Perform Lexiscan stress test to assess for stress induced cardiac ischemia. If abnormal will consider coronary angiography. If stress test and echocardiogram with no acute findings, okay to discharge from cardiology perspective and follow up outpatient with Dr. Tolbert Smoking cessation discussed and highly recommended. Thank you kindly for this consultation. Nurse Practitioner note has been reviewed, I agree with a documented findings and plan of care. Patient was seen and examined. Past Medical History Past Medical History: COPD, Diabetes Mellitus, GERD/Reflux, Hypertension, Liver Disease, Osteoarthritis (OA), Sleep Apnea/CPAP/BIPAP Additional Past Medical History / Comment(s): SOB, Chest tightness, heart "flutter", hepatitis C- dx and tx 2013. no using CPAP History of Any Multi-Drug Resistant Organisms: None Reported Past Surgical History: Joint Replacement, Tonsillectomy Additional Past Surgical History / Comment(s): sue shoulder replacements, arthroscopy left knee, Past Anesthesia/Blood Transfusion Reactions: No Reported Reaction Additional Past Anesthesia/Blood Transfusion Reaction / Comment(s): no hx blood transfusion Past Psychological History: Anxiety, Depression, PTSD Smoking Status: Current every day smoker Past Alcohol Use History: None Reported Additional Past Alcohol Use History / Comment(s): quit smoking 1994, smoked 23 yrs- 1PPD Past Drug Use History: None Reported - Past Family History Father Family Medical History: Cancer Mother Family Medical History: Cancer Medications and Allergies Home Medications Medication Instructions Recorded Confirmed Type Omeprazole 20 mg PO DAILY 12/22/15 04/02/21 History Losartan Potassium 100 mg PO DAILY 07/01/16 04/02/21 History Metoprolol Succinate (ER) [Toprol 25 mg PO DAILY 05/18/19 04/02/21 History XL] Umeclidinium [place] [Incruse 1 puff INHALATION RT-DAILY 05/18/19 04/02/21 History Ellipta] busPIRone HCL 30 mg PO BID 05/18/19 04/02/21 History metFORMIN HCL [Glucophage] 1,000 mg PO BID 05/18/19 04/02/21 History traZODone HCL 200 mg PO HS 05/18/19 04/02/21 History Aspirin EC [Ecotrin Low Dose] 81 mg PO DAILY 03/05/21 04/02/21 History Desvenlafaxine [Desvenlafaxine ER] 50 mg PO DAILY 03/05/21 04/02/21 History Albuterol Nebulized [Ventolin 2.5 mg INHALATION RT-Q4H PRN 04/02/21 04/02/21 History Nebulized] Allergies Allergy/AdvReac Type Severity Reaction Status Date / Time No Known Allergies Allergy Verified 04/02/21 13:34 Physical Exam Vitals: Vital Signs Temp Pulse Pulse Resp BP BP BP 04/03/21 07:00 97.5 F L 75 16 109/69 04/03/21 02:05 74 20 04/03/21 01:59 98.9 F 74 20 103/62 04/02/21 21:56 97.8 F 75 18 103/65 04/02/21 21:31 97.7 F 84 18 112/64 04/02/21 20:00 81 18 115/62 04/02/21 19:49 78 04/02/21 19:33 74 04/02/21 19:32 83 18 04/02/21 18:47 98.6 F 75 18 118/70 04/02/21 15:48 71 16 143/77 04/02/21 12:56 16 04/02/21 11:12 97.9 F 82 22 144/86 Pulse Ox 04/03/21 07:00 94 L 04/03/21 02:05 04/03/21 01:59 92 L 04/02/21 21:56 97 04/02/21 21:31 95 04/02/21 20:00 95 04/02/21 19:49 04/02/21 19:33 04/02/21 19:32 04/02/21 18:47 96 04/02/21 15:48 97 04/02/21 12:56 04/02/21 11:12 95 Intake and Output 04/02/21 04/03/21 04/03/21 22:59 06:59 14:59 Other: Voiding Method Toilet # Voids 1 1 Weight 113.852 kg Results 04/02/21 12:30 04/02/21 12:45 Cardiac Enzymes 04/02/21 04/02/21 04/02/21 Range/Units 12:45 12:45 14:25 AST 38 (17-59) U/L Troponin I <0.012 <0.012 (0.000-0.034) ng/mL 04/02/21 Range/Units 19:19 AST (17-59) U/L Troponin I <0.012 (0.000-0.034) ng/mL Coagulation 04/02/21 Range/Units 12:30 PT 10.5 (9.0-12.0) sec APTT 22.5 (22.0-30.0) sec CBC 04/02/21 Range/Units 12:30 WBC 9.8 (3.8-10.6) k/uL RBC 5.03 (4.30-5.90) m/uL Hgb 15.6 (13.0-17.5) gm/dL Hct 44.5 (39.0-53.0) % Plt Count 287 (150-450) k/uL Comprehensive Metabolic Panel 04/02/21 Range/Units 12:45 Sodium 133 L (137-145) mmol/L Potassium 4.2 (3.5-5.1) mmol/L Chloride 100 (98-107) mmol/L Carbon Dioxide 21 L (22-30) mmol/L BUN 18 (9-20) mg/dL Creatinine 0.70 (0.66-1.25) mg/dL Glucose 192 H (74-99) mg/dL Calcium 9.7 (8.4-10.2) mg/dL AST 38 (17-59) U/L ALT 44 (4-49) U/L Alkaline Phosphatase 76 (38-126) U/L Total Protein 7.2 (6.3-8.2) g/dL Albumin 4.1 (3.5-5.0) g/dL Current Medications Generic Name Dose Route Start Last Admin Trade Name Freq PRN Reason Stop Dose Admin Acetaminophen 650 mg 04/02/21 16:08 04/02/21 18:43 Acetaminophen Tab 325 Mg Tab PO 650 mg Q6HR PRN Administration Mild Pain or Fever > 100.5 Albuterol Sulfate 2.5 mg 04/02/21 16:06 Albuterol Nebulized 2.5 Mg/3 Ml INHALATION RT-Q4H PRN Shortness Of Breath Albuterol/Ipratropium 3 ml 04/02/21 20:00 04/03/21 08:25 Ipratropium-Albuterol 3 Ml Neb INHALATION Not Given RT-QID MONALISA Alprazolam 0.25 mg 04/02/21 16:08 04/02/21 18:43 Alprazolam 0.25 Mg Tab PO 0.25 mg Q6HR PRN Administration Anxiety Aminophylline 100 mg 04/03/21 08:38 Aminophylline 500 Mg/20 Ml Vial IV 04/03/21 12:39 ONCE PRN Patient Response Aspirin 81 mg 04/03/21 09:00 04/03/21 08:51 Aspirin 81 Mg PO 81 mg DAILY MONALISA Administration Budesonide 1 mg 04/02/21 20:00 04/03/21 08:25 Budesonide 1 Mg/2 Ml Nebu INHALATION Not Given RT-BID MONALISA Buspirone HCl 30 mg 04/02/21 21:00 04/03/21 08:52 Buspirone Hcl 10 Mg Tab PO 30 mg BID MONALISA Administration Caffeine Citrate 60 mg 04/03/21 08:38 Caffeine Citrate 60 Mg/3 Ml Vial IV 04/03/21 12:39 ONCE PRN Patient Response Desvenlafaxine Succinate 50 mg 04/03/21 09:00 04/03/21 08:52 Desvenlafaxine Succinate 50 Mg Tab.Er.24h PO 50 mg DAILY MONALISA Administration Enoxaparin Sodium 40 mg 04/02/21 17:45 04/03/21 09:07 Enoxaparin 40 Mg/0.4 Ml Syringe SQ 40 mg DAILY MONALISA Administration Guaifenesin 600 mg 04/02/21 18:00 04/03/21 08:51 Guaifenesin 600 Mg Tablet.Er PO 600 mg QID MONALISA Administration Insulin Aspart 0 unit 04/02/21 17:30 04/03/21 08:45 Insulin Aspart (Novolog) 100 Unit/Ml Vial SQ Not Given ACHS [facility] Protocol Losartan Potassium 100 mg 04/03/21 09:00 04/03/21 08:51 Losartan 50 Mg Tab PO 100 mg DAILY MONALISA Administration Melatonin 3 mg 04/02/21 16:08 04/02/21 20:05 Melatonin 3 Mg Tablet PO 3 mg HS PRN Administration Insomnia Metoprolol Succinate 25 mg 04/03/21 09:00 04/03/21 08:51 Metoprolol Succinate (Er) 25 Mg Tab.Er.24h PO 25 mg DAILY MONALISA Administration Naloxone HCl 0.2 mg 04/02/21 16:08 Naloxone 0.4 Mg/Ml 1 Ml Vial IV Q2M PRN Opioid Reversal Nitroglycerin 0.4 mg 04/02/21 14:36 Nitroglycerin Sl Tabs 0.4 Mg Tab SUBLINGUAL Q5M PRN Chest Pain Ondansetron HCl 4 mg 04/02/21 16:08 Ondansetron 4 Mg/2 Ml Vial IVP Q8HR PRN Nausea And Vomiting Pantoprazole Sodium 40 mg 04/03/21 07:30 04/03/21 08:51 Pantoprazole 40 Mg Tablet PO 40 mg DAILY@0730 MONALISA Administration Regadenoson 0.4 mg 04/03/21 08:38 Regadenoson 0.4 Mg/5 Ml Syringe IV 04/03/21 12:39 ONCE PRN Per Protocol Tamsulosin HCl 0.4 mg 04/02/21 18:30 04/02/21 18:50 Tamsulosin 0.4 Mg Cap.Er.24h PO 0.4 mg PC-SUPPER MONALISA Administration Trazodone HCl 200 mg 04/02/21 21:00 04/02/21 20:05 Trazodone Hcl 100 Mg Tab PO 200 mg HS MONALISA Administration Intake and Output 04/02/21 04/03/21 04/03/21 22:59 06:59 14:59 Other: Voiding Method Toilet # Voids 1 1 Weight 113.852 kg 04/02/21 12:30 04/02/21 12:45
[2021-04-03 11:14] LABS: Chol/HDL Ratio 6.85; LDL Cholesterol,Calculated 88.4 mg/dL (0.0-131.0); VLDL Calculation 63.6 mg/dL (5.00-40.00)
--- NOTE | 2021-04-03 12:52 | NM ---
EXAMINATION TYPE: NM stress lexiscan cardiolite DATE OF EXAM: 04/03/2021 COMPARISON: NONE HISTORY: Chest pain TECHNIQUE: After the intravenous administration of 10 mCi Tc 99m Sestamibi - Cardiolite resting SPEC T images acquired 45 minutes post injection. At peak stress 25.4 mCi Tc 99m Sestamibi - Stress images obtained 30 minutes post injection The patient was stressed with 0.4mg Lexiscan. FINDINGS: On SPECT imaging there is a small fixed defect along the inferior lateral wall towards the cardiac ap ex. This appears similar on both rest and stress images. Polar maps appear normal. Wall motion is normal. Ejection fraction of 55% is normal. IMPRESSION: 1. Small fixed defect along the inferior lateral wall near the cardiac apex may be prior infarct. 2. No stress-induced ischemic changes. 3. Normal ejection fraction
--- NOTE | 2021-04-03 13:04 | ECHOF ---
Referral Reason:Chest pain MEASUREMENTS -------- HEIGHT: 175.3 cm WEIGHT: 113.9 kg BP: 103/62 RVIDd: 3.0 cm (< 3.3) IVSd: 1.3 cm (0.6 - 1.1) LVIDd: 3.7 cm (3.9 - 5.3) LVPWd: 1.3 cm (0.6 - 1.1) IVSs: 1.7 cm LVIDs: 2.3 cm LVPWs: 1.7 cm LA Diam: 2.8 cm (2.7 - 3.8) LAESV Index (A-L): 22.17 ml/m Ao Diam: 3.0 cm (2.0 - 3.7) AV Cusp: 2.1 cm (1.5 - 2.6) MV EXCURSION: 18.742 mm (> 18.000) MV EF SLOPE: 44 mm/s (70 - 150) EPSS: 0.5 cm MV E Brenton: 0.66 m/s MV DecT: 261 ms MV A Brenton: 0.71 m/s MV E/A Ratio: 0.93 RAP: 5.00 mmHg RVSP: 27.32 mmHg FINDINGS -------- Sinus rhythm. This was a technically adequate study. The left ventricular size is normal. There is mild concentric left ventricular hypertrophy. Overa ll left ventricular systolic function is normal with, an EF between 55 - 60 %. The diastolic fillin g pattern is normal for the age of the patient 8.94. The right ventricle is normal in size. Normal LA size by volume 22+/-6 ml/m2. The right atrial size is normal. Lipomatous Hypertrophy of the atrial septum is present The aortic valve is trileaflet, and appears structurally normal. No aortic stenosis or regurgitation. The mitral valve is normal. There is trace mitral regurgitation. The tricuspid valve appears structurally normal. Mild tricuspid regurgitation present. Right vent ricular systolic pressure is normal at < 35 mmHg. Trace/mild (physiologic) pulmonic regurgitation. The aortic root size is normal. Normal inferior vena cava with normal inspiratory collapse consistent with estimated right atrial pre ssure of 5 mmHg. Echo free space indicative of a pericardial fat pad. CONCLUSIONS -------- 1. The left ventricular size is normal. 2. There is mild concentric left ventricular hypertrophy. 3. Overall left ventricular systolic function is normal with, an EF between 55 - 60 %. 4. Normal LA size by volume 22+/-6 ml/m2. 5. The aortic valve is trileaflet, and appears structurally normal. No aortic stenosis or regurgitati on. 6. There is trace mitral regurgitation. 7. Mild tricuspid regurgitation present. 8. Trace/mild (physiologic) pulmonic regurgitation. 9. Echo free space indicative of a pericardial fat pad. DOCUMENT MANAGEMENT SPECIALIST: Ladonna Rodriguez RDCS
--- NOTE | 2021-04-03 15:10 | EST ---
EXERCISE STRESS AGE: 61 SEX: M HT: 5'9" WT: 250 lbs. PROTOCOL: Lexiscan Cardiolite STAGE: NA DURATION OF EXERCISE: NA HEART RATE REST: 70 BLOOD PRESSURE REST: 130/70 MAXIMUM HEART RATE ACHIEVED: 111 MAXIMUM BLOOD PRESSURE: 134/77 85% MPHR: 134 100% MPHR: 158 METS: NA INDICATIONS: Difficulty in breathing. CLINICAL INFORMATION: Baseline rhythm is sinus mechanism, rate 70, normal axis and intervals. Normal electrocardiogram. Baseline blood pressure 130/70 mmHg. Patient received injection of Lexiscan. Electrocardiograph monitoring showed no evidence of diagnostic ischemic ST elevation. Cardiolite was injected per protocol. CONCLUSION: 1. Nondiagnostic electrocardiograph stress testing. 2. Nuclear images will be reported separately. MMODL / IJN: [id number] /
--- NOTE | 2021-04-03 16:36 | P.DS ---
Providers Date of admission: 04/02/21 14:36 Expected date of discharge: 04/03/21 Attending physician: Aryan Caicedo Consults: 04/02/21 14:36 Consult Physician Urgent Consulting Provider: [facility] Consult Reason/Comments: Chest pain Do you want consulting provider notified?: Yes Primary care physician: Dariel Ruano [facility] Course: Chief Complaint: Chest tightness History of presenting complaint: This is a pleasant 61-year-old patient of Dr. Dariel Bach. Chronic stable medical conditions include diabetes, GERD, hypertension, osteoarthritis, obstructive sleep apnea uses CPAP, depression. Patient has been noticing having heavy chest for about 3-4 weeks. He notices that it, especially with activity. No radiation. No dizziness nor lightheadedness. Sometimes associated with perspiration. Not able to walk blocks distances. He did see Dr. Gordon for the same. Was given bronchodilators and Zithromax. Some improvement. Patient is also wheezing. Patient also saw his casting technician Dr. Abhinav Tolbert and is scheduled to have a 2-D echocardiogram and a cardiac catheterization. Patient denies any prior cardiac activity. He also feels congested in the chest. Feels and sees to expectorate sputum and is not able to do so. Patient's symptoms have been progressive hence decided to come to the ER. Patient admitted with unstable angina. Cardiac she consulted. Also treated for chronic bronchitis component of COPD. Mucinex was added. April 03: Patient seen by currently. Ordered a stress test. Before the results could be obtained patient decided to leave AMA. Lexiscan stress test did come back negative. Late in the day I called the patient's at home. He was resting, and did talk to his . Did inform her that the stress test was negative. And that he should follow up with his primary doctor, and his magnet valve assembler. And the casting technician. Consultation: Dr. Yoder from cardiology Past medical history to include: COPD, diabetes, GERD, hypertension, liver disease, osteoarthritis, obstructive sleep apnea uses CPAP, hepatitis C diagnosed and treated in 2013, anxiety depression PTSD Social history: Patient smoked for about 23 years about a pack a day stopped in 1994. . 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 Family history: Cancer Physical examination: VITAL SIGNS: 97.9, 82, 82, 144/86, 95% room air GENERAL: BMI 37.1, sitting on bed, not in distress. EYES: Pupils equal. Conjunctiva normal. NECK: JVD not raised; masses not palpable. HEART: First and second heart sounds are normal; no edema. LUNGS: Respiratory rate normal; diminished breath sounds, mild wheezing. ABDOMEN: Soft, nontender, liver spleen not palpable, no masses palpable. INVESTIGATIONS, reviewed in the clinical context: Lexiscan nuclear stress test: Negative for ischemia 2-D echocardiogram: EF 55-60%. LDL 63 Coronavirus [PCR]: Not detected WBC 9.8 hemoglobin 15.6 platelets 287 potassium 4.2 creatinine 0.7 EKG tracing personally reviewed by me-normal sinus rhythm Chest x-ray film personally reviewed by me-borderline cardiomegaly. Lung clear Assessment and plan: -Progressive chest tightness with activity the patient should with known cardiac risk factors include ex-smoker, diabetes, hypertension. Possibly from COPD. Nuclear stress test-negative. -COPD in a previous smoker DuoNeb 4 times a day. Inhaled steroids. Add Mucinex and a flutter valve to help expectoration. -Obstructive sleep apnea Continue CPAP -Essential hypertension Cozaar 100 mg a day, Toprol-XL 25 mg a day -Obesity BMI 37.1 Weight loss measures and follow-up with PCP -Anxiety depression not otherwise specified BuSpar 30 mg twice a day, Pristiq ER 50 mg daily, -Likely BPH symptoms Start Flomax 0.4 mg daily at bedtime. Discussed with patient to follow-up with his PCP. Patient left AMA hence medications cannot be done. Plan - Discharge Summary Discharge Rx Participant: No New Discharge Prescriptions: No Action Omeprazole 20 mg PO DAILY Losartan Potassium 100 mg PO DAILY metFORMIN HCL [Glucophage] 1,000 mg PO BID busPIRone HCL 30 mg PO BID traZODone HCL 200 mg PO HS Metoprolol Succinate (ER) [Toprol XL] 25 mg PO DAILY Umeclidinium Crane [Incruse Ellipta] 1 puff INHALATION RT-DAILY Aspirin EC [Ecotrin Low Dose] 81 mg PO DAILY Desvenlafaxine [Desvenlafaxine ER] 50 mg PO DAILY Albuterol Nebulized [Ventolin Nebulized] 2.5 mg INHALATION RT-Q4H PRN PRN Reason: Shortness Of Breath Discharge Medication List Omeprazole 20 mg PO DAILY 12/22/15 [History] Losartan Potassium 100 mg PO DAILY 07/01/16 [History] Metoprolol Succinate (ER) [Toprol XL] 25 mg PO DAILY 05/18/19 [History] Umeclidinium Crane [Incruse Ellipta] 1 puff INHALATION RT-DAILY 05/18/19 [History] busPIRone HCL 30 mg PO BID 05/18/19 [History] metFORMIN HCL [Glucophage] 1,000 mg PO BID 05/18/19 [History] traZODone HCL 200 mg PO HS 05/18/19 [History] Aspirin EC [Ecotrin Low Dose] 81 mg PO DAILY 03/05/21 [History] Desvenlafaxine [Desvenlafaxine ER] 50 mg PO DAILY 03/05/21 [History] Albuterol Nebulized [Ventolin Nebulized] 2.5 mg INHALATION RT-Q4H PRN 04/02/21 [History] Follow up Appointment(s)/Referral(s): Dariel Bach MD [Primary Care Provider] - 1-2 days Barrett Tolbert MD [STAFF PHYSICIAN] - 2 Weeks Discharge Disposition: Left Against Medical Advice
== END 2021-04-03 12:35 | disposition left against medical advice (07) ==
LOC: EC 11:02 → 6NMEDSUR 14:36
PROVIDERS: ADMIT Hospitalist; ATTEND Hospitalist
DX: R07.89 Other chest pain (principal); J44.9 Chronic obstructive pulmonary disease, unspecified; I11.9 Hypertensive heart disease without heart failure; I07.1 Rheumatic tricuspid insufficiency; E11.9 Type 2 diabetes mellitus without complications; E78.00 Pure hypercholesterolemia, unspecified; R39.15 Urgency of urination; F43.10 Post-traumatic stress disorder, unspecified; K21.9 Gastro-esophageal reflux disease without esophagitis; K76.9 Liver disease, unspecified; M19.90 Unspecified osteoarthritis, unspecified site; F32.9 Major depressive disorder, single episode, unspecified; F41.9 Anxiety disorder, unspecified; G47.33 Obstructive sleep apnea (adult) (pediatric); E66.9 Obesity, unspecified; Z68.37 Body mass index [BMI] 37.0-37.9, adult; Z86.16 Personal history of COVID-19; Z79.84 Long term (current) use of oral hypoglycemic drugs; Z79.82 Long term (current) use of aspirin; Z86.19 Personal history of other infectious and parasitic diseases; Z96.612 Presence of left artificial shoulder joint; Z87.891 Personal history of nicotine dependence; Z96.611 Presence of right artificial shoulder joint; Z98.890 Other specified postprocedural states; Z80.9 Family history of malignant neoplasm, unspecified; Z53.29 Procedure and treatment not carried out because of patient's decision for other reasons
CPT/HCPCS: 96372 ×2; 99285; 36415; 94668; 94640; 93005; 93017; 93306; 80061; 80053; 83735; 84484; 85025; 85610; 85730; 87635; 71046; 78452; G0378 ×2; A9500; J1650 ×2; J2785

== ENCOUNTER → 2021-06-27 | Outpatient (CLI) | payer MEDICARE, OTHER, BC ==
[2021-06-27 10:32] LABS: Appearance,Urine Clear (Clear); Bilirubin,Urine Negative (Negative); Blood,Urine Negative (Negative); Color,Urine Yellow; Glucose,Urine (UA) Trace (Negative); Ketones,Urine Negative (Negative); Leukocyte Esterase,Urine Negative (Negative); Nitrite,Urine Negative (Negative); PH, Urine 6.5 (5.0-8.0); Protein,Urine Trace (Negative)
[2021-06-27 15:01] LABS: Basophils # (A) 0.04 X 10*3/uL (0.00-0.10); Basophils % (A) 0.5 %; Eosinophils # (A) 0.19 X 10*3/uL (0.04-0.35); Eosinophils % (A) 2.4 %; HCT 45.4 % (39.6-50.0); HGB 15.4 g/dL (13.0-17.0); Lymphocytes # (A) 2.09 X 10*3/uL (0.90-5.00); Lymphocytes % (A) 26.4 %; MCH 30.6 pg (27.0-32.0); MCHC 33.9 g/dL (32.0-37.0); MCV 90.1 fL (80.0-97.0); Mean Platelet Volume 8.9 fL (9.5-12.2); Monocytes # (A) 0.54 X 10*3/uL (0.20-1.00); Monocytes % (A) 6.8 %; Neutrophils # (A) 5.04 X 10*3/uL (1.80-7.70); Neutrophils % (A) 63.5 %; Platelet Count 235 X 10*3/uL (140-440); RBC 5.04 X 10*6/uL (4.40-5.60); RDW 12.5 % (11.5-14.5); WBC 7.93 X 10*3/uL (4.50-10.00)
[2021-06-27 16:12] LABS: ALT 63 U/L (10-49); AST 43 U/L (14-35); African American GFR (CKD) 108.9 (60.0-200.0); Albumin 4.3 g/dL (3.8-4.9); Albumin/Globulin Ratio 1.73 (1.60-3.17); Alkaline Phosphatase 71 U/L (41-126); BUN/Creat Ratio 18.97 Ratio (12.00-20.00); Blood Urea Nitrogen 15.9 mg/dL (9.0-27.0); Calcium 9.3 mg/dL (8.7-10.3); Carbon Dioxide 24.1 mmol/L (20.0-27.5); Chloride 100 mmol/L (96-109); Chol/HDL Ratio 6.23 Ratio; Globulin 2.5 g/dL (1.6-3.3); Glucose 154 mg/dL (70-110); Non-African American GFR(CKD) 93.9 (60.0-200.0); Sodium 136 mmol/L (135-145); Total Protein 6.7 g/dL (6.2-8.2)
== END | disposition home or self-care (01) ==
LOC: LABWHC1 09:35
PROVIDERS: ATTEND Family Medicine
DX: Z00.00 Encounter for general adult medical examination without abnormal findings (principal); Z13.9 Encounter for screening, unspecified; N40.0 Benign prostatic hyperplasia without lower urinary tract symptoms
CPT/HCPCS: 36415; 80053; 80061; 81003; 82306; 84153; 84443; 85025